=== PATIENT | female | born 1965 | race Caucasian/White ===

== ENCOUNTER 2020-02-13 16:00 | Outpatient (RCR) | payer OTHER, SELFPAY ==
[2019-12-30 14:14] VITALS: BP 126/78; PULSE 71
--- NOTE | 2020-03-06 13:55 | MHC.PT.DC ---
[facility] [place] Office [place] Office [place] Office [address] Shilpi Bond [address] [phone] F: [phone] F: [phone] F: [phone] F: [phone] Physical Therapy Discharge Report Diagnosis: Vertigo Date of Surgery: Date of Evaluation: 12/30/19 Date of Discharge: 02/14/20 Treatments to Date: 8 Cancellations to Date: 0 No Shows to Date: 0 Discharge Status: Achieved Goals Improved Function Independent with HEP Discharge Summary: 02/13/20- Pt arrived with no symptoms of vertigo. She stated that she had mild dizziness yesterday when she stood up from a bent over position. She however does not have any dizziness with rolling and sit <> supine. She was assessed in B reyna pike and B roll test. She was negative for nystagmus and vertigo. No more therapy indicated. She was advised to return to therapy in case of return of symptoms. Pt d/c. Electronically signed by: Nkechi Dias DPT Please sign and return to therapist. Thank you for your referral.
== END 2020-03-06 14:58 | disposition other institution (70) ==
LOC: HO.PT 16:00
PROVIDERS: PCP Internal Medicine; Visit Provider Otolaryngology
DX: H81.10 Benign paroxysmal vertigo, unspecified ear (principal)
CPT/HCPCS: 95992; 97140; 97162; 97530

== ENCOUNTER 2020-04-30 16:23 | Outpatient (REF) | payer OTHER, SELFPAY ==
--- NOTE | ~2020-04-30 | XR_ITS ---
EXAMINATION: XR FOOT, LEFT CLINICAL INFORMATION: Left foot pain COMPARISON: 02/19/2006 TECHNIQUE: AP, lateral, and oblique views of the left foot. FINDINGS: There is a nondisplaced intra-articular fracture at the medial base of the first digit proximal phalanx. Questionable nondisplaced fracture at the lateral base of the first digit distal phalanx. Joint spaces are maintained. The soft tissues appear unremarkable. XR/XR foot LT min 3V IMPRESSION: Nondisplaced intra-articular fracture of the medial base of the first digit proximal phalanx. Questionable nondisplaced fracture at the lateral base of the first digit distal phalanx.
--- NOTE | ~2020-04-30 | XR_ITS ---
EXAMINATION: XR KNEE, LEFT CLINICAL INFORMATION: Left knee pain COMPARISON: None TECHNIQUE: Four views of the left knee. FINDINGS: There is no fracture or subluxation. Compartmental joint spaces are maintained. No joint effusion. The soft tissues are unremarkable. XR/XR knee LT 4V IMPRESSION: Normal left knee.
== END 2020-04-30 16:24 | disposition home or self-care (01) ==
LOC: HO.HMGCX 16:23
PROVIDERS: PCP Internal Medicine; Visit Provider Nurse Practitioner Family
DX: M25.562 Pain in left knee (principal); M79.672 Pain in left foot; W19.XXXA Unspecified fall, initial encounter
CPT/HCPCS: 73564; 73630

== ENCOUNTER 2020-09-19 11:57 | Outpatient (REF) | payer OTHER, SELFPAY ==
[2020-09-19 12:16] LABS: MANUAL DIFF FLAG NO
[2020-09-19 12:22] LABS: Basophils Percent Auto 0.4 % (0-2); Eosinophils Percent Auto 0.6 % (0-4); Hematocrit 40.8 % (37-47); Hemoglobin 13.8 g/dl (12.0-16.0); Lymphocytes Absolute Auto 0.9 X10*3/uL (1.2-4.9); Lymphocytes Percent Auto 18.6 % (20-40); Mean Corpuscular HGB Conc 33.8 g/dl (31.0-35.0); Mean Corpuscular Hemoglobin 34.4 pg (27.0-33.0); Mean Corpuscular Volume 101.7 fL (80-98); Mean Platelet Volume 9.4 fL (9.4-12.3); Monocytes Absolute Auto 0.6 X10*3/uL (0.1-1.2); Monocytes Percent Auto 12.7 % (2-11); Neutrophils Absolute Auto 3.3 X10*3/uL (2.0-8.3); Neutrophils Percent Auto 67.7 % (45-73); Platelet Count 245 X10*3/uL (160-400); Red Blood Count 4.01 X10*6/uL (4.20-5.50); Red Cell Distribution Width 12.6 % (11.0-16.0); White Blood Count 4.9 X10*3/uL (4.8-10.8)
[2020-09-19 13:15] LABS: Alanine Aminotransferase 38 U/L (0-31); Albumin Level 4.3 g/dL (3.5-5.0); Alkaline Phosphatase 73 U/L (39-117); Anion Gap 13 (12-20); Aspartate Amino Transferase 44 U/L (5-31); Blood Urea Nitrogen 12 mg/dL (9-16); Calcium 9.5 mg/dL (8.4-10.2); Carbon Dioxide 29 mmol/L (22-29); Chloride 103 mmol/L (96-108); Cholesterol 247 mg/dL; Estimated Glomerular Filt Rate > 60; Glucose Fasting 76 mg/dL (60-99); HDL Cholesterol 119 mg/dL; LDL Cholesterol Calculated 113 mg/dl; Potassium 4.7 mmol/L (3.3-5.1); Sodium 140 mmol/L (135-145); Total Protein 6.7 g/dL (6.5-8.0); Triglycerides 77 mg/dL
== END 2020-09-19 11:58 | disposition home or self-care (01) ==
LOC: HO.HSHHMC 11:57
PROVIDERS: Visit Provider Internal Medicine
DX: I10 Essential (primary) hypertension (principal); E78.5 Hyperlipidemia, unspecified; R42 Dizziness and giddiness
CPT/HCPCS: 36415; 80053; 80061; 85025

== ENCOUNTER 2021-05-01 15:30 | Outpatient (RCR) | payer OTHER, SELFPAY ==
[2021-02-05 15:18] VITALS: BP 147/92; PULSE 78
== END 2021-05-23 13:16 | disposition home or self-care (01) ==
LOC: HO.PT 15:30
PROVIDERS: Visit Provider Otolaryngology
DX: H81.10 Benign paroxysmal vertigo, unspecified ear (principal)
CPT/HCPCS: 95992; 97112; 97161

== ENCOUNTER 2021-05-29 15:31 | Outpatient (REF) | payer OTHER, SELFPAY ==
--- NOTE | ~2021-05-29 | MM_ITS ---
EXAMINATION: MM SCREENING DIGITAL BREAST TOMOSYNTHESIS, BILATERAL CLINICAL INFORMATION: Screening. Asymptomatic. Family history breast cancer, mother. The lifetime risk of breast cancer based on the Tyrer-Cuzick Model is 10%. COMPARISON: Mammography: 11/19/2019, 11/13/2018, 06/09/2017, 04/05/2016, 01/27/2015 TECHNIQUE: Digital breast tomosynthesis is performed in both the craniocaudal and mediolateral oblique views along with computer-aided detection (CAD). Synthesized 2D images are generated from the tomosynthesis. FINDINGS: There are scattered areas of fibroglandular density (ACR BI-RADS breast composition Category b). Left breast is unremarkable. There is no developing density or interval mass or architectural abnormality. Neither breast shows abnormal calcifications. The bilateral axilla and skin contours are unremarkable. Right CC view has subtle architectural changes 7 cm from nipple medial to midline. There is fatty attenuation in the center of this area. No definite correlate on MLO view. Patient will be recalled for additional imaging. MM/MM tomosynthesis screening BI IMPRESSION: Right: -Subtle architectural changes mid inner right breast on CC view, new from prior studies. Left: -No mammographic evidence of malignancy. ASSESSMENT: BI-RADS 0: Incomplete - Need Additional Imaging Evaluation RECOMMENDATION: 1. Additional views of the right breast (spot CC, rolled CC x2, standard LM). 2. Targeted ultrasound if warranted after review of the additional views. 3. Radiology department staff will contact the patient for additional imaging. This patient's information was entered into a reminder system with a target due date for their next mammogram.
== END 2021-05-29 15:32 | disposition home or self-care (01) ==
LOC: HO.MAMMO 15:31
PROVIDERS: Visit Provider Internal Medicine
DX: Z12.31 Encounter for screening mammogram for malignant neoplasm of breast (principal)
CPT/HCPCS: 77063; 77067

== ENCOUNTER 2021-06-03 08:24 | Outpatient (REF) | payer OTHER, SELFPAY ==
--- NOTE | ~2021-06-03 | MM_ITS ---
EXAMINATION: MM DIAGNOSTIC DIGITAL BREAST TOMOSYNTHESIS, RIGHT CLINICAL INFORMATION: Recall from screening for question of architectural changes mid central inner right breast on CC view. COMPARISON: Mammography: 05/29/2021, 11/19/2019, 11/13/2018, 05/30/2017 TECHNIQUE: Digital breast tomosynthesis is performed. 2D images are generated from the tomosynthesis. The following views are obtained: Spot CC, rolled CC x2, LM x2. FINDINGS: There are scattered areas of fibroglandular density (ACR BI-RADS breast composition Category b). The additional views show no architectural abnormality. There is no interval mass or developing density. No significant changes. Parenchymal pattern unremarkable. Results are discussed with the patient at time of visit. MM/MM tomosynthesis added views R IMPRESSION: Additional views show no architectural abnormality or significant changes from prior studies. ASSESSMENT: BI-RADS 1: Negative RECOMMENDATION: Routine annual mammography screening. This patient's information was entered into a reminder system with a target due date for their next mammogram.
== END 2021-06-03 08:25 | disposition home or self-care (01) ==
LOC: HO.MAMMO 08:24
PROVIDERS: Visit Provider Internal Medicine
DX: N64.89 Other specified disorders of breast (principal)
CPT/HCPCS: 77061; 77065

== ENCOUNTER 2021-12-13 05:57 | Outpatient (REF) | payer OTHER, SELFPAY ==
[2021-12-13 08:08] LABS: Hematocrit 45.2 % (37.0-47.0); Hemoglobin 14.8 g/dl (12.0-16.0); Mean Corpuscular HGB Conc 32.7 g/dl (31.0-35.0); Mean Corpuscular Hemoglobin 33.8 pg (27.0-33.0); Mean Corpuscular Volume 103.2 fL (80.0-98.0); Mean Platelet Volume 10.7 fL (9.4-12.3); Platelet Count 220 X10*3/uL (160-400); Red Blood Count 4.38 X10*6/uL (4.20-5.50); Red Cell Distribution Width 12.3 % (11.0-16.0); White Blood Count 4.5 X10*3/uL (4.8-10.8)
[2021-12-13 08:27] LABS: Alanine Aminotransferase 23 U/L (0-31); Albumin Level 4.7 g/dL (3.5-5.0); Alkaline Phosphatase 82 U/L (39-117); Anion Gap 17 (12-20); Aspartate Amino Transferase 30 U/L (5-31); Bilirubin Total 0.8 mg/dL (0.0-1.0); Blood Urea Nitrogen 14 mg/dL (9-16); Calcium 9.9 mg/dL (8.4-10.2); Carbon Dioxide 30 mmol/L (22-29); Chloride 101 mmol/L (96-108); Cholesterol 288 mg/dL; Estimated Glomerular Filt Rate > 60; Glucose Fasting 81 mg/dL (60-99); HDL Cholesterol 120 mg/dL; LDL Cholesterol Calculated 151 mg/dl; Potassium 4.7 mmol/L (3.3-5.1); Sodium 143 mmol/L (135-145); Total Protein 7.5 g/dL (6.5-8.0); Triglycerides 87 mg/dL
[2021-12-13 08:29] LABS: Alanine Aminotransferase 22 U/L (0-31); Albumin Level 4.7 g/dL (3.5-5.0); Alkaline Phosphatase 82 U/L (39-117); Anion Gap 17 (12-20); Aspartate Amino Transferase 27 U/L (5-31); Bilirubin Total 0.8 mg/dL (0.0-1.0); Blood Urea Nitrogen 15 mg/dL (9-16); Calcium 10.1 mg/dL (8.4-10.2); Carbon Dioxide 31 mmol/L (22-29); Chloride 101 mmol/L (96-108); Cholesterol 286 mg/dL; Estimated Glomerular Filt Rate > 60; Glucose Fasting 82 mg/dL (60-99); HDL Cholesterol 119 mg/dL; LDL Cholesterol Calculated 150 mg/dl; Potassium 4.6 mmol/L (3.3-5.1); Sodium 144 mmol/L (135-145); Total Protein 7.4 g/dL (6.5-8.0); Triglycerides 86 mg/dL
[2021-12-13 08:47] LABS: TSH reflex Free T4 3.52 uIU/mL (0.32-4.0); Vitamin D 25-OH Total 38.7 ng/mL (>30)
[2021-12-13 09:16] LABS: Folate 4.8 ng/mL (> or = 4.0); Vitamin B12 216 pg/mL (200-900)
[2021-12-19 12:47] LABS: Vitamin D 25-OH, D2 <4 ng/mL; Vitamin D 25-OH, D3 41 ng/mL; Vitamin D 25-OH, Total 41 ng/mL (30-100)
== END 2021-12-13 05:58 | disposition home or self-care (01) ==
LOC: HO.HSHHMC 05:57
PROVIDERS: Absent Provider Nurse Practitioner Family; Visit Provider Internal Medicine
DX: E78.5 Hyperlipidemia, unspecified (principal); R42 Dizziness and giddiness; I10 Essential (primary) hypertension; E55.9 Vitamin D deficiency, unspecified
CPT/HCPCS: 36415; 80053; 80061; 82306; 82607; 82746; 84443; 85027

== ENCOUNTER 2022-05-20 07:15 | Outpatient (REF) | payer OTHER, SELFPAY ==
[2022-05-20 11:02] LABS: Alanine Aminotransferase 58 U/L (0-31); Albumin Level 4.3 g/dL (3.5-5.0); Alkaline Phosphatase 79 U/L (39-117); Anion Gap 16 (12-20); Aspartate Amino Transferase 61 U/L (5-31); Bilirubin Total 1.1 mg/dL (0.0-1.0); Blood Urea Nitrogen 14 mg/dL (9-16); Calcium 9.4 mg/dL (8.4-10.2); Carbon Dioxide 31 mmol/L (22-29); Chloride 102 mmol/L (96-108); Cholesterol 271 mg/dL; Estimated Glomerular Filt Rate > 60; Glucose Fasting 84 mg/dL (60-99); HDL Cholesterol 116 mg/dL; LDL Cholesterol Calculated 141 mg/dl; Potassium 4.8 mmol/L (3.3-5.1); Sodium 144 mmol/L (135-145); Total Protein 6.7 g/dL (6.5-8.0); Triglycerides 74 mg/dL
[2022-05-20 11:18] LABS: Vitamin D 25-OH Total 44.4 ng/mL (>30)
[2022-05-20 11:32] LABS: Folate 8.5 ng/mL (> or = 4.0); Vitamin B12 1018 pg/mL (200-900)
== END 2022-05-20 07:16 | disposition home or self-care (01) ==
LOC: HO.HSHHMC 07:15
PROVIDERS: Nurse Practitioner Family; Visit Provider Internal Medicine
DX: I10 Essential (primary) hypertension (principal); E78.5 Hyperlipidemia, unspecified; E53.8 Deficiency of other specified B group vitamins; E55.9 Vitamin D deficiency, unspecified
CPT/HCPCS: 36415; 80053; 80061; 82306; 82607; 82746

== ENCOUNTER 2022-06-20 15:00 | Outpatient (RCR) | payer OTHER, SELFPAY ==
[2022-04-11 14:51] VITALS: BP 132/84
--- NOTE | 2022-08-29 11:55 | MHC.PT.DC ---
[facility] [place] Office [place] Office [place] Office [address] Shilpi Bond [address] [phone] F: [phone] F: [phone] F: [phone] F: [phone] Physical Therapy Discharge Report Diagnosis: Vertigo Date of Surgery: NA Date of Evaluation: 04/11/22 Date of Discharge: 08/29/22 Treatments to Date: 9 Cancellations to Date: 2 No Shows to Date: Discharge Status: Independent with HEP Discharge Summary: Millie completed 9 PT visits. She has returned back positive for L PC BPPV every single session. I therefore sent home with HEP for self management. She has not returned to PT in over 2 months. She is therefore being d/c from PT. Electronically signed by: Nkechi Dias, PT DPT Please sign and return to therapist. Thank you for your referral.
== END 2022-08-29 11:55 | disposition home or self-care (01) ==
LOC: HO.PT 15:00
PROVIDERS: PCP Internal Medicine; Visit Provider Otolaryngology
DX: R42 Dizziness and giddiness (principal)
CPT/HCPCS: 95992; 97112; 97161

== ENCOUNTER 2022-07-05 10:43 | Outpatient (REF) | payer OTHER, SELFPAY ==
--- NOTE | ~2022-07-05 | MM_ITS ---
EXAMINATION: MM SCREENING DIGITAL BREAST TOMOSYNTHESIS, BILATERAL CLINICAL INFORMATION: Screening. Asymptomatic. The lifetime risk of breast cancer based on the Tyrer-Cuzick Model is 10%. COMPARISON: Mammography: 06/03/2021, 05/29/2021, 11/19/2019 TECHNIQUE: Digital breast tomosynthesis is performed in both the craniocaudal and mediolateral oblique views along with computer-aided detection (CAD). Synthesized 2D images are generated from the tomosynthesis. FINDINGS: There are scattered areas of fibroglandular density (ACR BI-RADS breast composition Category b). There are no significant masses, abnormal calcifications, or other abnormalities. Parenchymal pattern is similar to prior studies. There is no developing density or architectural abnormality. The axilla and skin contours are unremarkable. No significant changes. MM/MM tomosynthesis screening BI IMPRESSION: No mammographic evidence of malignancy. ASSESSMENT: BI-RADS 1: Negative RECOMMENDATION: Routine annual mammography screening. This patient's information was entered into a reminder system with a target due date for their next mammogram.
== END 2022-07-05 10:44 | disposition home or self-care (01) ==
LOC: HO.MAMMO 10:43
PROVIDERS: Visit Provider Internal Medicine
DX: Z12.31 Encounter for screening mammogram for malignant neoplasm of breast (principal)
CPT/HCPCS: 77063; 77067

== ENCOUNTER 2023-05-13 17:22 | Outpatient (AMB) | payer OTHER, SELFPAY ==
[2023-05-13 17:29] VITALS: BP 136/82; BMI 24.6
--- NOTE | 2023-05-13 17:29 | A.OFFPC_ITS ---
Vital Signs 05/13/23 17:29 Height 5 ft 3 in Weight 139 lb BMI 24.6 BP 136/82 Blood Pressure Location Lt brachial Position Sitting Intake Visit Reasons: Annual PE Intake Note: Patient here for a physical exam Healthcare Risk Control Consultant Required: No Accompanied by: Self / Same As Patient Allergies No Known Allergies Allergy (Unknown, Verified 05/13/23 17:37) Medication List - Last Reconciled 05/13/23 by Christina Queen MD aspirin (Adult Low Dose Aspirin) 81 mg PO DAILY atorvastatin 20 mg PO BEDTIME 90 days cholecalciferol (vitamin D3) 25 mcg PO DAILY 90 days escitalopram oxalate 20 mg PO BEDTIME 90 days lisinopril 20 mg PO DAILY 90 days lorazepam 0.5 mg PO BEDTIME PRN 30 days omeprazole 40 mg PO DAILY 90 days Tobacco use date assessed: 05/13/23 Dental Screening Dental Screen Date: 05/13/23 Did you have a dental visit in the last 12 months?: Yes Did you have a dental problem in the last 6 months where you did not have access to dental care?: No Was dental information given to patient?: Patient has dentist HPI HPI Comments History of Present Illness Details This is a 58-year-old female with non-Hodgkin's lymphoma in remission since 1984 that comes for her physical exam. She also has mild major depression that has worsened since January 2023 after that of her brother. Last mammogram was 2022. Last colonoscopy was 2015. No chest pain or shortness of breath. Occasional diarrhea when anxious. FORMERLY [facility], [facility]–1983 Medical History (Updated 05/13/23 @ 17:58 by Christina Queen MD) GERD (gastroesophageal reflux disease) Left sided sciatica Dyslipidemia Hypovitaminosis D Anxiety Vertigo Essential hypertension Surgical History History of colonoscopy History of surgery History of lymph node biopsy History of section H/O LEEP Family History (Updated 05/13/23 @ 17:43 by Christina Queen MD) Father CHF (congestive heart failure) TIA (transient ischemic attack) Pacemaker Mother Breast cancer AAA (abdominal aortic aneurysm) Stroke Brother Esophageal cancer Sister Hypertension Maternal Uncle AAA (abdominal aortic aneurysm) Social History Housing: House Alcohol intake: current Alcohol intake frequency: a few times a week Alcohol type: wine Patient Tobacco Use Status: Never used Tobacco e-Cigarette/Vaping Use: Never Used Second Hand Smoke Exposure: No service: No Current occupational status: employed Current occupational exposures/hazards: No Cognitive needs: No Hearing needs: No Vision needs: Yes Questionnaire PHQ-9 Over the last 2 weeks, how often have you been bothered by any of the following problems? 1. Little interest or pleasure in doing things: not at all 2. Feeling down, depressed, or hopeless: several days 3. Trouble falling or staying asleep, or sleeping too much: several days 4. Feeling tired or having little energy: several days 5. Poor appetite or overeating: not at all 6. Feeling bad about yourself - or that you are a failure or have let yourself or your family down: not at all 7. Trouble concentrating on things, such as reading the newspaper or watching television: not at all 8. Moving or speaking so slowly that other people could have noticed. Or the opposite - being so fidgety or restless that you have been moving around a lot more than usual: several days 9. Thoughts that you would be better off or of hurting yourself in some way: not at all Total score: 4 Depression Screening Interpretation: Positive Depression Screening Follow-up: Existing condition and In treatment Depression Screening Done: Yes 40696 - PHQ-9 Billing: Yes Source: Developed by Drs. Hernan Jones, Michelle Ambrose, Julio Euceda and colleagues, with an educational fish from [employer]. Thrive Questionnaire Date Thrive assessed: 05/13/23 I am a: Patient What is your living situation today?: I have a steady place to live Within the past 12 months, did the food you bought not last and you didn't have the money to get more?: Never true Within the past 12 months, did you worry whether your food would run out before you got money to buy more?: Never true Do you have trouble paying for medicines?: No Do you have trouble getting transportation to medical appointments?: No Do you have trouble paying your heating and electricity bill?: No Do you have trouble taking care of your child, family member or friend?: No Do you have trouble with day-to-day activities such as bathing, preparing meals, shopping, managing finances, etc.?: No Are you currently unemployed and looking for a job?: No Are you interested in more education?: No Please select the resources that you would like help with: None Currently or been in a relationship where the following occur: no concerns reported THRIVE Score: 0 AUDIT C Alcohol Use Questionnaire (AUDIT-C) 1. How often do you have a drink containing alcohol?: 2-3 times a week 2. How many drinks containing alcohol do you have on a typical day when you are drinking?: 1 or 2 3. How often do you have six or more drinks on one occasion?: Never Total Score: 3 Score Reviewed/Action Taken: No NAKUL-7 AMB Questionnaire NAKUL-7 Date NAKUL - 7 assessed: 05/13/23 Feeling nervous, anxious, or on edge: 1 = Several days Not being able to stop or control worryin = Not at all Worrying too much about different things: 1 = Several days Trouble relaxin = Several days Being so restless that it is hard to sit still: 0 = Not at all Becoming easily annoyed or irritable: 0 = Not at all Feeling afraid as if something awful might happen: 0 = Not at all Total NAKUL-7 score (0-4 normal; 5-9 mild; 10-14 moderate; 15-21 severe): 3 Source: Developed by Drs. Hernan Jones, Michelle Ambrose, Julio Euceda and colleagues, with an educational fish from [employer]. NAKUL-7 Assessment Billing NAKUL-7 Assessment Tool: NAKUL-7 Assessment 38044 Review of Systems Const All systems reviewed & are unremarkable except as noted in HPI and below Eyes Reports no additional complaints, Denies change in vision and Denies other visual disturbances Card Denies chest pain at rest, Denies chest pain with activity, Denies edema, Denies irregular heart rhythm, Denies claudication, Denies dyspnea, Denies dyspnea on exertion, Denies orthopnea, Denies paroxysmal nocturnal dyspnea and Denies slow heart rate Resp Denies cough, Denies dyspnea and Denies dyspnea on exertion Physical exam (Primary Care) Vital Signs: Last Vital Signs BP 136/82 05/13/23 17:29 BMI result Body Mass Index 24.6 Tobacco/Smoking Status: Tobacco use Status Tobacco use date assessed 05/13/23 05/13/23 17:34 Patient Tobacco Use Status Never used Tobacco 05/13/23 17:34 e-Cigarette/Vaping Use Never Used 05/13/23 17:34 PHQ-9: PHQ-9 Score PHQ-9: Total score 4 05/13/23 17:34 Depression Screening Interpretation: Positive Depression Screening Follow-up: Existing condition and In treatment Thrive Assessment: Date of Thrive Assessment Date Thrive assessed 05/13/23 05/13/23 17:34 Currently or been in a relationship where the following occur: no concerns reported Const Orientation/consciousness: patient oriented x3 HENMT Head: Yes normal to inspection, Yes normocephalic and Yes atraumatic Ears: external ears normal Eyes General: appearance normal, both eyes and all related structures Eyelids: Yes eyelids normal Conjunctivae: conjunctivae normal Neck Neck: Yes normal visual inspection and Yes supple Resp Effort & Inspection: normal respiratory effort Auscultation: clear to auscultation bilaterally Cardio Jugular venous distension: no JVD Rate: regular rate Rhythm: regular rhythm Heart sounds: S1 normal heart sound present and S2 normal heart sound present GI Inspection: Yes normal to inspection Palpation (GI): Soft to palpation and nontender Auscultation: normal bowel sounds Skin General skin exam: no rashes or lesions noted Neuro General: patient oriented x3 and no focal motor deficits Extrem General: Yes full ROM Psych Appearance: grossly normal Assessment and Plan Assessment & Plan (1) Adult general medical exam: Code(s): Z00.00 - Encounter for general adult medical examination without abnormal findings Plan: Repeat in a year. (2) Non-Hodgkin lymphoma in remission: Code(s): C85.90 - Non-Hodgkin lymphoma, unspecified, unspecified site Plan: CBC ordered. No lymphadenopathy. (3) Mild major depression: Code(s): F32.0 - Major depressive disorder, single episode, mild Plan: Continue escitalopram. Orders: Orders Vitamin D 25-OH Total Today E55.9 - Vitamin D deficiency, unspecified Vitamin B12 and Folate Today E53.8 - Deficiency of other specified B group vitamins Comprehensive [place]. Panel Fast Today Z00.00 - Encounter for general adult medical examination without abnormal findings Lipid Panel Today E78.5 - Hyperlipidemia, unspecified Complete Blood Count Auto Diff Today C85.90 - Non-Hodgkin lymphoma, unspecified, unspecified site Coding Level of Care Code Est Pt Prev Care 40-64y(10811) Diagnoses Adult general medical exam Z00.00 Non-Hodgkin lymphoma in remission C85.90 Mild major depression F32.0 Additional Codes NAKUL-7 Assessment Billing - NAKUL-7 Assessment Tool: NAKUL-7 Assessment 41080 ([id number]) Time Spent (min) 35
== END 2023-05-13 17:56 | disposition home or self-care (01) ==
PROVIDERS: PCP Internal Medicine; Visit Provider Internal Medicine
DX: Z00.00 Encounter for general adult medical examination without abnormal findings (principal); C85.90 Non-Hodgkin lymphoma, unspecified, unspecified site; F32.0 Major depressive disorder, single episode, mild
CPT/HCPCS: 99396

== ENCOUNTER 2023-07-06 14:53 | Outpatient (REF) | payer OTHER, SELFPAY ==
--- NOTE | ~2023-07-06 | MM_ITS ---
EXAMINATION: MM DIAGNOSTIC DIGITAL BREAST TOMOSYNTHESIS, BILATERAL US BREAST LIMITED, LEFT MAMMOGRAPHY: CLINICAL INFORMATION: Evaluation of a palpable left breast lump 3 weeks duration. Patient reports a fall 3 months prior with bruising in this area. COMPARISON: Mammography: This study is compared with prior mammography dating back to 2019. TECHNIQUE: Digital breast tomosynthesis is performed in both the craniocaudal and mediolateral oblique views along with computer-aided detection (CAD). Synthesized 2D images are generated from the tomosynthesis. A full lateral view of the left breast and CC and MLO spot compression of the medial aspect of the left breast in the area of patient concern at 9:00 location 9:00 performed. FINDINGS: There are scattered areas of fibroglandular density (ACR BI-RADS breast composition Category b). There are no significant masses, abnormal calcifications, or other abnormalities. There are no mammographic signs of malignancy in either breast. There is no mammographic abnormality in the area of patient concern in the 9:00 region and in the anterior depth. ULTRASOUND: CLINICAL INFORMATION: Evaluation of a palpable left breast lump 3 weeks duration. Patient reports a fall 3 months prior with bruising in this area. COMPARISON: There are no recent previous breast ultrasounds for comparison. TECHNIQUE: Targeted sonographic evaluation was performed using a high frequency linear transducer. Selected archived documentation. FINDINGS: LEFT BREAST: Sonography of the area of patient concern, left breast 9:00 4 cm from the nipple as performed. In this location, there is an oval, well-circumscribed, heterogeneous, predominantly echogenic mass with faint decreased echogenicity. This represents a resolving hematoma. The structure measures 16 mm x 10 mm x 7 mm. This finding warrants short interval three-month follow-up to demonstrate lack of significant change given the absence of prior recent ultrasound comparison. This is not a worrisome entity however. MM/MM tomosynthesis diagnostic BI IMPRESSION: 16 mm predominantly echogenic palpable left breast mass in the 9:00 region 4 cm from the nipple likely represents a resolving hematoma. In the absence of recent prior sonography for comparison, it is appropriate for the patient to have short interval three-month follow-up sonography of this finding. No mammographic signs of malignancy in either breast. OVERALL ASSESSMENT: Mammography: BI-RADS 3 - Probably benign finding(s) - 6 month follow-up suggested Ultrasound: BI-RADS 3 - Probably benign finding(s) - 6 month follow-up suggested DUE TO A SOFTWARE ISSUE, THE ULTRASOUND BI-RADS CODE SUGGESTS A SIX-MONTH FOLLOW-UP. THE SONOGRAPHIC FOLLOW-UP SHOULD BE 3 MONTHS. RECOMMENDATION: 1-3 Months F/U Results were provided to the patient at time of visit by the technologist. This patient's information was entered into a reminder system with a target due date for their next mammogram.
== END 2023-07-06 14:54 | disposition home or self-care (01) ==
LOC: HO.MAMMO 14:53
PROVIDERS: PCP Internal Medicine; Visit Provider Obstetrics & Gynecology
DX: N63.25 Unspecified lump in the left breast, overlapping quadrants (principal)
CPT/HCPCS: 76642; 77062; 77066

== ENCOUNTER → 2023-07-06 15:00 | Outpatient (BNV) | payer OTHER, SELFPAY | PROVIDERS: PCP Internal Medicine; Visit Provider Radiology Diagnostic Radiology | DX: N63.20 Unspecified lump in the left breast, unspecified quadrant (principal) | CPT/HCPCS: 76642; 77062; 77066 ==

== ENCOUNTER 2023-08-13 15:00 | Outpatient (RCR) | payer OTHER, SELFPAY ==
[2023-05-21 10:01] VITALS: BP 141/84; PULSE 76
== END 2023-09-17 15:20 | disposition home or self-care (01) ==
LOC: HO.PT 15:00
PROVIDERS: PCP Internal Medicine; Visit Provider Otolaryngology
DX: H81.10 Benign paroxysmal vertigo, unspecified ear (principal)
CPT/HCPCS: 95992; 97112; 97161

== ENCOUNTER 2023-09-07 15:22 | Outpatient (REF) | payer OTHER, SELFPAY ==
--- NOTE | ~2023-09-07 | US_ITS ---
EXAMINATION: US DIAGNOSTIC ULTRASOUND BREAST, LEFT CLINICAL INFORMATION: Follow-up 1.6 cm echogenic palpable abnormality left breast 9:00 axis, 4 cm from the nipple, most likely related to trauma from fall with bruising. Findings are most likely represent evolving fat contusion and are probably benign. COMPARISON: 07/06/2023 TECHNIQUE: Ultrasound of the breast is performed with real-time dalton scale imaging and color Doppler. Attention to the left breast was given to the 9:00 axis, 4 cm from the nipple. FINDINGS: Redemonstration of an oval echogenic subcutaneous mass at the 9:00 axis, left breast, 4 cm from the nipple, currently measuring 1.4 x 1.1 x 0.5 cm (smaller, previously measuring 1.6 x 1.2 x 0.7 cm when measured similarly). This finding is consistent with an evolving fat contusion or possibly evolving fat necrosis. It remains probably benign. Results are provided to the patient at time of visit by the technologist. US/US breast LT limited mamm only IMPRESSION: Probably benign slightly smaller oval echogenic mass in the left breast 9:00 axis, 4 cm from the nipple. This is likely related to patient's prior trauma as described above. Recommend 9 month interval follow-up targeted left breast ultrasound when the patient is due for bilateral screening to ensure stability. If stable or smaller at that time, no further follow-up deemed necessary. ASSESSMENT: BI-RADS 3 - Probably benign finding(s) - 6 month follow-up suggested RECOMMENDATION: 6 Month F/U DUE TO A PERSISTENT SOFTWARE ISSUE, THE ULTRASOUND BI-RADS CODE SUGGESTS A SIX-MONTH FOLLOW-UP. THE SONOGRAPHIC FOLLOW-UP SHOULD BE IN 9 MONTHS. This patient's information was entered into a reminder system with a target due date for their next mammogram.
== END 2023-09-07 15:23 | disposition home or self-care (01) ==
LOC: HO.MAMMO 15:22
PROVIDERS: PCP Internal Medicine; Visit Provider Internal Medicine
DX: R92.2 Inconclusive mammogram (principal)
CPT/HCPCS: 76642

== ENCOUNTER → 2023-09-07 15:30 | Outpatient (BNV) | payer OTHER, SELFPAY | PROVIDERS: PCP Internal Medicine; Visit Provider Radiology Diagnostic Radiology | DX: R92.8 Other abnormal and inconclusive findings on diagnostic imaging of breast (principal) | CPT/HCPCS: 76642 ==

== ENCOUNTER 2023-11-02 17:13 | Outpatient (AMB) | payer OTHER, SELFPAY ==
--- NOTE | 2023-11-02 17:14 | MHC.PC.OV ---
Intake Visit Reasons: anxiety, Intake Note: Telehealth follow up Anxiety Case Filler Required: No Accompanied by: Self / Same As Patient Allergies No Known Allergies Allergy (Unknown, Verified 11/02/23 17:31) Medication List - Last Reconciled 11/02/23 by Christina Queen MD aspirin (Adult Low Dose Aspirin) 81 mg PO DAILY atorvastatin 20 mg PO BEDTIME 90 days cholecalciferol (vitamin D3) 25 mcg PO DAILY 90 days escitalopram oxalate 20 mg PO BEDTIME 90 days lisinopril 20 mg PO DAILY 90 days lorazepam 0.5 mg PO BEDTIME PRN 30 days omeprazole 40 mg PO DAILY 90 days Tobacco use date assessed: 05/13/23 Dental Screening Dental Screen Date: 11/02/23 Did you have a dental visit in the last 12 months?: Yes Did you have a dental problem in the last 6 months where you did not have access to dental care?: No Was dental information given to patient?: Patient has dentist HPI HPI Comments History of Present Illness Details This is a 58-year-old female with hypertension, GERD, mild major depression and anxiety that has tele health visit by video for follow-up on her conditions. On losartan for her hypertension. GERD stable with PPIs. Still has depression with anxiety on escitalopram 20 mg and she does not think it is working for her. She said she use Prozac in the past with great success. I will decrease escitalopram to 10 mg for a week and start her on Prozac. She would also like to see a prescriber for her depression with anxiety and I will refer her to outpatient psychiatry service at [facility] [place] evaluation and treatment. No chest pain or shortness on breath. [facility] Medical History (Updated 05/13/23 @ 17:58 by Christina Queen MD) GERD (gastroesophageal reflux disease) Left sided sciatica Dyslipidemia Hypovitaminosis D Anxiety Vertigo Essential hypertension Surgical History History of colonoscopy History of surgery History of lymph node biopsy History of section H/O LEEP Family History Father CHF (congestive heart failure) TIA (transient ischemic attack) Pacemaker Mother Breast cancer AAA (abdominal aortic aneurysm) Stroke Brother Esophageal cancer Sister Hypertension Maternal Uncle AAA (abdominal aortic aneurysm) Social History (Updated 11/02/23 @ 17:34 by Christina Queen MD) Housing: House Alcohol intake: current Alcohol intake frequency: 0-2 drinks per day Alcohol type: wine Patient Tobacco Use Status: Never used Tobacco e-Cigarette/Vaping Use: Never Used Second Hand Smoke Exposure: No service: No Current occupational status: employed Current occupational exposures/hazards: No Cognitive needs: No Hearing needs: No Vision needs: Yes Questionnaire Thrive Questionnaire Date Thrive assessed: 05/13/23 NAKUL-7 AMB Questionnaire NAKUL-7 Date NAKUL - 7 assessed: 05/13/23 Source: Developed by Drs. Hernan Jones, Michelle Ambrose, Julio Euceda and colleagues, with an educational fish from [employer]. Review of Systems Const All systems reviewed & are unremarkable except as noted in HPI and below ENT Reports vertigo Card Denies chest pain at rest, Denies chest pain with activity, Denies edema, Denies irregular heart rhythm, Denies claudication, Denies dyspnea, Denies dyspnea on exertion, Denies orthopnea, Denies paroxysmal nocturnal dyspnea and Denies slow heart rate Resp Denies cough, Denies dyspnea and Denies dyspnea on exertion GI Denies abdominal pain, Denies change in bowel habits, Denies excessive flatus, Denies nausea and Denies vomiting Denies urinary incontinence, Denies urinary hesitancy and Denies urinary urgency Musc Denies atrophy, Denies deformity and Denies limited range of motion Neuro Reports vertigo Psych Reports abnormal sleep pattern, Reports anxiety and Reports depression Physical exam (Primary Care) Tobacco/Smoking Status: Tobacco use Status Tobacco use date assessed 05/13/23 11/02/23 17:17 Patient Tobacco Use Status Never used Tobacco 11/02/23 17:34 e-Cigarette/Vaping Use Never Used 11/02/23 17:34 Thrive Assessment: Date of Thrive Assessment Date Thrive assessed 05/13/23 11/02/23 17:17 HENMT Head: Yes normocephalic and Yes atraumatic General nose exam: Normal external nose present Mouth: lip normal Eyes General: appearance normal, both eyes and all related structures Telehealth Telehealth Telehealth Platform: Other (please specify) (Facetime/Video) Location of provider rendering services: practice address Location of patient: address on file Patient Identification confirmed using: Name, : Yes Telehealth method: video Patient verbally consented to treatment: Yes Patient verbally consented to billing insurance company: Yes Patient informed of any privacy concerns related to visit: Yes Minutes spent on Phone/Video with Pt.: 20 Assessment and Plan Assessment & Plan (1) Mild major depression: Code(s): F32.0 - Major depressive disorder, single episode, mild Plan: Decrease escitalopram for 10 mg for a week. Start fluoxetine. Referred to Psychiatry outpatient for evaluation. (2) GERD (gastroesophageal reflux disease): Code(s): K21.9 - Gastro-esophageal reflux disease without esophagitis Plan: Continue PPIs. (3) Anxiety: Code(s): F41.9 - Anxiety disorder, unspecified Plan: Continue benzodiazepines as needed. (4) Essential hypertension: Code(s): I10 - Essential (primary) hypertension Plan: Continue lisinopril. Blood pressure goal is equal or less than 130/80. Orders: Orders Vitamin D 25-OH Total Today E55.9 - Vitamin D deficiency, unspecified Comprehensive [place]. Panel Fast Today C85.90 - Non-Hodgkin lymphoma, unspecified, unspecified site Vitamin B12 and Folate Today E53.8 - Deficiency of other specified B group vitamins Lipid Panel Today E78.5 - Hyperlipidemia, unspecified Referrals Psychiatry Outpatient Consultation Service F32.0 - Major depressive disorder, single episode, mild, F41.9 - Anxiety disorder, unspecified Medications: New escitalopram oxalate 10 mg PO DAILY 7 tabs 0RF 7 days fluoxetine 10 mg PO DAILY 30 tabs 1RF 30 days Refilled lorazepam 0.5 mg PO BEDTIME PRN 30 tabs 0RF anxiety 30 days Discontinued escitalopram oxalate Discontinued Reason: Patient Completed Course 20 mg PO BEDTIME 90 days 90 tabs 1RF F41.9 - Anxiety disorder, unspecified Coding Level of Care Code Tele Est Pt Level 4 (88177) Complex EM visit Add On G2211 Diagnoses Mild major depression F32.0 GERD (gastroesophageal reflux disease) K21.9 Anxiety F41.9 Essential hypertension I10 Time Spent (min) 20
== END 2023-11-02 18:01 | disposition home or self-care (01) ==
LOC: HO.HMGH 17:14
PROVIDERS: PCP Internal Medicine; Visit Provider Internal Medicine
DX: F32.0 Major depressive disorder, single episode, mild (principal); K21.9 Gastro-esophageal reflux disease without esophagitis; F41.9 Anxiety disorder, unspecified; I10 Essential (primary) hypertension
CPT/HCPCS: 99214

== ENCOUNTER 2023-11-07 10:41 | Outpatient (REF) | payer OTHER, SELFPAY ==
[2023-11-07 12:26] LABS: Alanine Aminotransferase 42 U/L (0-31); Albumin Level 4.2 g/dL (3.5-5.0); Alkaline Phosphatase 72 U/L (39-117); Anion Gap 14 (12-20); Aspartate Amino Transferase 47 U/L (5-31); Bilirubin Total 0.9 mg/dL (0.0-1.0); Blood Urea Nitrogen 9 mg/dL (9-16); Calcium 9.8 mg/dL (8.4-10.2); Carbon Dioxide 30 mmol/L (22-29); Chloride 101 mmol/L (96-108); Cholesterol 259 mg/dL (<200); Estimated Glomerular Filt Rate > 60; Glucose Fasting 100 mg/dL (60-99); HDL Cholesterol 111 mg/dL (>40); LDL Cholesterol Calculated 135 mg/dL (<100); Potassium 5.4 mmol/L (3.3-5.1); Sodium 140 mmol/L (135-145); Triglycerides 69 mg/dL (<150)
[2023-11-07 12:40] LABS: Vitamin D 25-OH Total 51.1 ng/mL (>30)
[2023-11-07 12:53] LABS: Folate 5.1 ng/mL (> or = 4.0); Vitamin B12 323 pg/mL (200-900)
== END 2023-11-07 10:42 | disposition home or self-care (01) ==
LOC: HO.LAB 10:41
PROVIDERS: PCP Internal Medicine; Visit Provider Internal Medicine
DX: C85.90 Non-Hodgkin lymphoma, unspecified, unspecified site (principal); E55.9 Vitamin D deficiency, unspecified; E53.8 Deficiency of other specified B group vitamins; E78.5 Hyperlipidemia, unspecified
CPT/HCPCS: 36415; 80053; 80061; 82306; 82607; 82746

== ENCOUNTER 2024-01-08 15:01 | Outpatient (AMB) | payer OTHER, SELFPAY ==
--- NOTE | 2024-01-08 15:10 | MHC.OFFVISPS ---
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 pt was on lexapro 20 mg but it was not helping her anxiety. PCP tapered off lexapro and started prozac 10 mg daily . pt had taken prozac in past for anxiety with good effect. pt has hx of taking prozac after her daughter was born by emergency and then 6 months later pt was diagnoses with non- hodgkins lymphoma and went through surgery and chemotherapy. she describes herself as always being on the worried side but the first time she needed treatment was at age 20 after first child born and cancer dx. Pt did very well and eventually went off the prozac and remained in remission x 20 yrs. 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 She has also had a number of difficult losses with the sudden loss of her mother in 2002 and then the loss of her aunt, uncle, grandmother and sister in law all in a few years from [id number]. More recently she lost her bother in January 2023 after caring for him along with other family for many months due to esophageal cancer. She is one of 8 children and they are very close; she is and has 4 adult daughter (2 bio and 2 step) and 3 grandchildren. they are all very close. she has good coping skills and sees a therapist. PHQ9 = 2 and GAD7= 3 Past Psychiatric History: outpt treatment; no IPLOC Subjective Subjective Subjective Medication Compliance: Yes Side effects from medications: No Review of Systems Medical Review of Systems: unchanged Mental Status Exam Mental Status Exam Patient Appearance: Well Grooomed and Appropriate Patient Orientation: Person, Place, Time and Situation Level of Consciousness: Awake and Appropriate Patient Behavior: Appropriate, Talkative and Good Eye Contact Mood Description: Anxious and Sad Affect Description: Anxious and Sad Patient Cognition Impaired: No Ability to Follow Directions: Good Speech Pattern: Clear and Appropriate Memory Description: Intact Hallucinations: None Delusions: Not Present Thought Process: Intact and Goal Oriented Thought Content: positive for Intact and positive for Goal Oriented Judgement: Good Assessment and Plan Assessment & Plan (1) Major depressive disorder, recurrent, mild: Status: Acute Code(s): F33.0 - Major depressive disorder, recurrent, mild (2) Generalized anxiety disorder with panic attacks: Status: Acute Code(s): F41.1 - Generalized anxiety disorder; F41.0 - Panic disorder [episodic paroxysmal anxiety] Plan increase prozac to 20mg daily lorazepam 0.5mg BID prn anxiety/panic Medications: New Prozac (fluoxetine) 20 mg PO DAILY 90 caps 1RF NS Changed From lorazepam 0.5 mg PO BEDTIME 30 days PRN 30 tabs 0RF anxiety To lorazepam 0.5 mg PO BID PRN 60 tabs 2RF anxiety 30 days Discontinued escitalopram oxalate Discontinued Reason: Patient no longer taking 10 mg PO DAILY 7 days 7 tabs 0RF fluoxetine Discontinued Reason: Patient no longer taking 10 mg PO DAILY 30 days 30 tabs 6RF Counseling and coordination of Care Pt. Self Management counseling: Exercise, Maintenance-social rhythm, Mod caffeine/ETOH intake, Nutrition education and improvement, Sleep hygiene, Behavior activation, General coping skills and Problem solving Medication management counseling: Effectiveness, Side effects, Dosing range, Duration, Drug interaction and Adherence Diagnosis and Prognosis Counseling: Accuracy of diagnosis, Prognosis over time, Impact of diagnosis on life functions, Impact of family relationship, Problematic behaviors secondary to diagnosis and Adequacy of current interventions Details: I spent 75 minutes reviewing the record, seeing the patient and documenting in the medical record. Counseling provided to the patient/caregiver as outlined below. Addressed patient/caregiver concerns regarding current medication regime including effective adherence. Addressed patient/caregiver concerns regarding diagnosis and prognosis including accuracy of diagnosis, prognosis over time, impact of diagnosis. Addressed patient/caregiver concerns regarding impact of recent stressors. [facility] Medical History (Updated 01/26/24 @ 11:43 by Michelle Cardona APRN) Mild major depression GERD (gastroesophageal reflux disease) Left sided sciatica Dyslipidemia Hypovitaminosis D Anxiety Vertigo Essential hypertension Surgical History History of colonoscopy History of surgery History of lymph node biopsy History of section H/O LEEP Family History Father CHF (congestive heart failure) TIA (transient ischemic attack) Pacemaker Mother Breast cancer AAA (abdominal aortic aneurysm) Stroke Brother Esophageal cancer Sister Hypertension Maternal Uncle AAA (abdominal aortic aneurysm) Social History (Updated 11/02/23 @ 17:34 by Christina Queen MD) Housing: House Alcohol intake: current Alcohol intake frequency: 0-2 drinks per day Alcohol type: wine Patient Tobacco Use Status: Never used Tobacco e-Cigarette/Vaping Use: Never Used Second Hand Smoke Exposure: No service: No Current occupational status: employed Current occupational exposures/hazards: No Cognitive needs: No Hearing needs: No Vision needs: Yes Social History: x 2 and has 4 adult daughters ; lives with H. 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 She is one of 8 children - very close family. 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
== END 2024-01-08 15:58 | disposition home or self-care (01) ==
LOC: HO.HOP 15:01
PROVIDERS: PCP Internal Medicine; Visit Provider Clinical Nurse Specialist Psychiatric/Mental Health
DX: F33.0 Major depressive disorder, recurrent, mild (principal); F41.1 Generalized anxiety disorder; F41.0 Panic disorder [episodic paroxysmal anxiety]
CPT/HCPCS: 90792

== ENCOUNTER → 2024-01-08 15:01 | Outpatient (BNVA) | payer OTHER, SELFPAY | PROVIDERS: PCP Internal Medicine; Visit Provider Clinical Nurse Specialist Psychiatric/Mental Health | DX: F33.0 Major depressive disorder, recurrent, mild (principal); F41.1 Generalized anxiety disorder; F41.0 Panic disorder [episodic paroxysmal anxiety]; Z79.899 Other long term (current) drug therapy | CPT/HCPCS: 90792 ==

== ENCOUNTER 2024-03-08 16:30 | Outpatient (AMB) | payer OTHER, SELFPAY ==
--- NOTE | 2024-03-08 16:33 | A.OFFPC_ITS ---
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 Required: No Accompanied by: Self / Same As Patient Allergies No Known Allergies Allergy (Unknown, Verified 03/08/24 16:45) Medication List - Last Reconciled 03/08/24 by Christina Queen MD aspirin (Adult Low Dose Aspirin) 81 mg PO DAILY atorvastatin 20 mg PO BEDTIME 90 days cholecalciferol (vitamin D3) 25 mcg PO DAILY 90 days lisinopril 20 mg PO DAILY 90 days lorazepam 0.5 mg PO BID PRN 30 days omeprazole 40 mg PO DAILY 90 days Prozac (fluoxetine) 20 mg PO DAILY NS Tobacco use date assessed: 03/08/24 Dental Screening Dental Screen Date: 03/08/24 Did you have a dental visit in the last 12 months?: No Did you have a dental problem in the last 6 months where you did not have access to dental care?: No Was dental information given to patient?: Patient has dentist HPI HPI Comments History of Present Illness Details The patient is a 59-year-old female presenting for a wellness visit with management of chronic conditions and anxiety. She has a history of essential hypertension managed on Lisinopril 20 mg, which is controlled well. The patient is also dealing with generalized anxiety, for which she is undergoing regular counseling sessions every other Thursday with Annel, a therapist at [facility]. She reports the need for continuous management due to elevated anxiety following family losses and adjustments in her family dynamics, including her daughter's recent decision to home . The patient started fluoxetine (currently taking 20 mg) after a discussion with her prescriber, Michelle aWrner, and notes a history of dosage adjustment. She has elevated liver enzymes, last checked at levels of 61/58, with ongoing alcohol consumption reported as a few times a week, primarily wine, which she has been attempting to reduce. Gastroesophageal reflux disease is managed with omeprazole. Hyperlipidemia is being treated with atorvastatin, which may also contribute to the liver enzyme elevation. Patient denies any new symptoms. She plans to continue monitoring with regular blood work and physical examinations. She has not Hodgkin lymphoma in remission. [facility] Medical History Mild major depression GERD (gastroesophageal reflux disease) Left sided sciatica Dyslipidemia Hypovitaminosis D Anxiety Vertigo Essential hypertension Surgical History History of colonoscopy History of surgery History of lymph node biopsy History of section H/O LEEP Family History Father CHF (congestive heart failure) TIA (transient ischemic attack) Pacemaker Mother Breast cancer AAA (abdominal aortic aneurysm) Stroke Brother Esophageal cancer Sister Hypertension Maternal Uncle AAA (abdominal aortic aneurysm) Social History (Updated 03/08/24 @ 16:50 by Christina Queen MD) Housing: House Alcohol intake: current Alcohol intake frequency: a few times a week Alcohol type: wine Patient Tobacco Use Status: Former Tobacco user e-Cigarette/Vaping Use: Never Used Second Hand Smoke Exposure: No service: No Current occupational status: employed Current occupational exposures/hazards: No Cognitive needs: No Hearing needs: No Vision needs: Yes Questionnaire PHQ-9 Over the last 2 weeks, how often have you been bothered by any of the following problems? 1. Little interest or pleasure in doing things: not at all 2. Feeling down, depressed, or hopeless: several days 3. Trouble falling or staying asleep, or sleeping too much: not at all 4. Feeling tired or having little energy: not at all 5. Poor appetite or overeating: not at all 6. Feeling bad about yourself - or that you are a failure or have let yourself or your family down: not at all 7. Trouble concentrating on things, such as reading the newspaper or watching television: not at all 8. Moving or speaking so slowly that other people could have noticed. Or the opposite - being so fidgety or restless that you have been moving around a lot more than usual: not at all 9. Thoughts that you would be better off or of hurting yourself in some way: not at all Total score: 1 Depression Screening Interpretation: Positive Depression Screening Follow-up: Existing condition, In treatment and Follow-up Visit Requested Depression Screening Done: Yes 78281 - PHQ-9 Billing: Yes Source: Developed by Drs. Hernan Jones, Michelle Ambrose, Julio Euceda and colleagues, with an educational fish from [employer]. Thrive Questionnaire Date Thrive assessed: 03/08/24 I am a: Patient What is your living situation today?: I do not have a steady places to live Within the past 12 months, did the food you bought not last and you didn't have the money to get more?: Never true Within the past 12 months, did you worry whether your food would run out before you got money to buy more?: Never true Do you have trouble paying for medicines?: No Do you have trouble getting transportation to medical appointments?: No Do you have trouble paying your heating and electricity bill?: No Do you have trouble taking care of your child, family member or friend?: No Do you have trouble with day-to-day activities such as bathing, preparing meals, shopping, managing finances, etc.?: No Are you currently unemployed and looking for a job?: No Are you interested in more education?: No Please select the resources that you would like help with: None THRIVE Score: 1 AUDIT C Alcohol Use Questionnaire (AUDIT-C) 1. How often do you have a drink containing alcohol?: 2-3 times a week 2. How many drinks containing alcohol do you have on a typical day when you are drinking?: 1 or 2 3. How often do you have six or more drinks on one occasion?: Never Total Score: 3 NAKUL-7 AMB Questionnaire NAKUL-7 Date NAKUL - 7 assessed: 03/08/24 Feeling nervous, anxious, or on edge: 1 = Several days Not being able to stop or control worryin = Not at all Worrying too much about different things: 1 = Several days Trouble relaxin = Not at all Being so restless that it is hard to sit still: 0 = Not at all Becoming easily annoyed or irritable: 0 = Not at all Feeling afraid as if something awful might happen: 0 = Not at all Total NAKUL-7 score (0-4 normal; 5-9 mild; 10-14 moderate; 15-21 severe): 2 Source: Developed by Michelle Butt, Julio Euceda and colleagues, with an educational fish from [employer]. NAKUL-7 Assessment Billing NAKUL-7 Assessment Tool: NAKUL-7 Assessment 69920 Review of Systems Const All systems reviewed & are unremarkable except as noted in HPI and below Card Denies chest pain at rest, Denies chest pain with activity, Denies edema, Denies irregular heart rhythm, Denies claudication, Denies dyspnea, Denies dyspnea on exertion, Denies orthopnea, Denies paroxysmal nocturnal dyspnea and Denies slow heart rate Resp Denies cough, Denies dyspnea and Denies dyspnea on exertion Physical exam (Primary Care) Vital Signs: Last Vital Signs BP 136/78 03/08/24 16:35 BMI result Body Mass Index 25.0 Tobacco/Smoking Status: Tobacco use Status Tobacco use date assessed 03/08/24 03/08/24 16:40 Patient Tobacco Use Status Former Tobacco user 03/08/24 16:50 e-Cigarette/Vaping Use Never Used 03/08/24 16:50 PHQ-9: PHQ-9 Score PHQ-9: Total score 1 03/08/24 16:45 Depression Screening Interpretation: Positive Depression Screening Follow-up: Existing condition, In treatment and Follow-up Visit Requested Thrive Assessment: Date of Thrive Assessment Date Thrive assessed 03/08/24 03/08/24 16:40 Resp Effort & Inspection: normal respiratory effort Auscultation: clear to auscultation bilaterally Cardio Jugular venous distension: no JVD Rate: regular rate Rhythm: regular rhythm Heart sounds: S1 normal heart sound present and S2 normal heart sound present Extrem General: Yes full ROM Coding Level of Care Code Est Pt Level 4 (58193) Complex EM visit Add On G2211 Diagnoses Major depressive disorder, recurrent, mild F33.0 Generalized anxiety disorder with panic attacks F41.1; F41.0 Non-Hodgkin lymphoma in remission C85.90 Essential hypertension I10 Dyslipidemia E78.5 GERD (gastroesophageal reflux disease) K21.9 Additional Codes NAKUL-7 Assessment Billing - NAKUL-7 Assessment Tool: NAKUL-7 Assessment 84634 ([id number]) PHQ-9 - 77875 - PHQ-9 Billing: Yes ([id number]) Time Spent (min) 23 Assessment & Plan Assessment & Plan (1) Major depressive disorder, recurrent, mild: Code(s): F33.0 - Major depressive disorder, recurrent, mild Category: Medical (2) Generalized anxiety disorder with panic attacks: Code(s): F41.1 - Generalized anxiety disorder; F41.0 - Panic disorder [episodic paroxysmal anxiety] Category: Medical (3) Non-Hodgkin lymphoma in remission: Code(s): C85.90 - Non-Hodgkin lymphoma, unspecified, unspecified site Category: Medical (4) Essential hypertension: Code(s): I10 - Essential (primary) hypertension Category: Medical (5) Dyslipidemia: Code(s): E78.5 - Hyperlipidemia, unspecified Category: Medical (6) GERD (gastroesophageal reflux disease): Code(s): K21.9 - Gastro-esophageal reflux disease without esophagitis Category: Medical Plan - Continue lisinopril 20 mg for hypertension with regular monitoring. - Maintain fluoxetine 20 mg for anxiety; ongoing counseling sessions advised. - Repeat liver function tests and full fasting blood work prior to the scheduled physical in April. - Reinforce reduction of alcohol intake to prevent further liver impairment. - Monitor compliance and efficacy of atorvastatin for hyperlipidemia, considering potential impact on liver enzymes. - Follow-up mammogram and ultrasound scheduled for July 07 to assess healing status of hematoma. - Continue omeprazole for GERD and monitor symptom control. Patient was informed and verbally consented to the use of an ambient scribe for clinic note documentation during this visit. I discussed with the patient the importance of managing chronic conditions and the necessity of frequent monitoring due to elevated liver enzymes and ongoing medication use. We reviewed the interaction between anxiety, family dynamics, and the need for continuous mental health support, including fluoxetine and counseling. We deliberated about the influence of atorvastatin and alcohol on liver function, guiding her towards moderation in alcohol consumption. I emphas ized the relevance of her upcoming mammogram and the precedent of physiological changes associated with her conditions. We confirmed a plan to repeat blood work and prepare for her physical assessment, coordinated with her daughter's due date. Orders: Orders Lipid Panel Today E78.5 - Hyperlipidemia, unspecified Vitamin D 25-OH Total Today E55.9 - Vitamin D deficiency, unspecified Comprehensive [place]. Panel Fast Today E87.5 - Hyperkalemia Patient Instructions: - Continue Lisinopril and Omeprazole as prescribed. - Attend counseling sessions regularly. - Limit alcohol intake to minimize liver impact. - Schedule and attend fasting blood work a week before May 16 appointment. - Monitor for any new symptoms and report if present. - Prepare for follow-up mammogram and ultrasound on July 07. - Contact the clinic if daughter's due date creates scheduling conflicts for physical appointment. - Maintain scheduled follow-ups and comply with prescribed therapies.
[2024-03-08 16:35] VITALS: BP 136/78; BMI 25.0
--- OUTSIDE RECORDS SUMMARY | 2024-03-08 18:12 | XMS_ITS | Continuity of Care Document ---
Author Organization [place] - [facility], [facility] Address [address] [place] [address] Care Team Providers Care Music Manager Name Role Phone CHRISTINA JIMENEZ Primary Care Provider Assessment Encounter Date Assessment Date Assessment LastModified by Organization Details LastModified Time 01/14/2024 01/14/2024 Patient continues to have signs of chronic underlying migraine disorder with vestibular migraine and recurrent BPPV. I gave her more literature to help her fine-tune her migraine diet, particularly within the constraints of her other dietary restrictions. I have encouraged her to continue with working on the underlying anxiety phenomenon as this can be a significant trigger for her symptoms as well. She will continue doing Анна maneuvers at home and with vestibular therapists. Once again we discussed whether or not we should consider pharmacologic therapy in the form of low-dose nortriptyline, but she wants to avoid this for now. She would like to follow-up again in 6 months for reevaluation. [email or web address] Not available 01/14/2024 14:11:14 Plan of Treatment Reminders Order Date Submit Date Provider Last Modified By Organization Details Last Modified Time Details Appointments Dizzy Follow Up 20 2024 03:10P M GUILLAUME TOSCANO MD Not available Not available Not available Lab None recorded . Referral None recorded . Procedures None recorded . Surgeries None recorded . Imaging None recorded . Medication Orders None recorded . Patient TargetsNo targets recorded. Patient InstructionsNo instructions recorded. Reason for Referral None Reported. Problems Name Problem SNOMED Code Status Onset Date Resolution Date Notes Provider Name and Address Organization Details Recorded Time Migraine 68993705 Active 2015 Other migraine, not intractabl e, without status migrainosu s; Note: Date Diagnosed: 12/25/2015 2:40 PM (G43.809) Not Available [facility] 4 02:40:06 Benign paroxysma l positiona l vertigo 912819430 Active 2022 Benign paroxysmal vertigo, unspecifie d ear; Condition: recurrent Note: Date Diagnosed: 12/25/2015 3:21 PM (H81.10) ; Start Date : 12/25/2015 Benign paroxysmal vertigo, left ear; Condition: recurrent Note: Date Diagnosed: 09/23/2017 3:33 PM (H81.12) Not Available [facility] 4 02:40:04 Allergic rhinitis 93344171 Active 2020 Other allergic rhinitis; Note: Date Diagnosed: 05/21/2020 4:36 PM (J30.89) Not Available [facility] 4 02:40:03 Vertigo of central origin NOS Active 2015 Vertigo of central origin, unspecifie d ear; Condition: recurrent Note: Date Diagnosed: 12/25/2015 3:21 PM (H81.49) Not Available [facility] 4 02:40:01 Generaliz ed anxiety disorder 63043001 Active 2023 GUILLAUME TOSCANO MD [address] [place] [address], [place], [address] , [place] - [facility] 4 13:59:18 Vertigo of central origin 59633933 Active 2023 GUILLAUME TOSCANO MD [address] [place] [address], [place], [address] , [place] - [facility] 4 14:08:02 Problem Notes None recorded. Procedures Surgical History Date Name Laterality Status Provider Name and Address Organization Details Recorded Time ligation of fallopian tube completed Christina Rubin [place] - [facility] 01/14/2024 13:46:55 section completed Christina Rubin [place] [facility] 01/14/2024 13:47:02 Imaging Results None recorded. Procedure Notes None recorded. Medical Equipment None Reported. Allergies No known drug allergies Medications Name Sig Start Date Stop Date Status Note LastModified by Organization Details LastModified Time atorvasta tin 20 mg tablet 20 MG ORALLY BEDTIME FOR 90 DAYS active Not Available Not Available No t Available desoximet asone 0.25 % topical cream APPLY TO ARM AND LEG RASH TWICE A DAY NEEDED NOT TO EXCEED 2 WEEKS AT A TIME active Not Available Not Available No t Available Claritin 10 mg tablet Take 1 tablet by mouth once a day 05/21 completed Medicati on ID: [id number] D uration Value: 30 Brand Name: Claritin Send Method: E-Prescr ibed Sub s Allowed: subs OK Medic ationGen ericName : Claritin Not Available Not Available Not Available lisinopri l 20 mg tablet TAKE 1 TABLET (20 MG) ORALLY DAILY FOR 90 DAYS active Not Available Not Available No t Available fluoxetin e 10 mg tablet TAKE 1 TABLET BY MOUTH EVERY DAY 01/13 completed Not Available Not Available Not Available Children' s Aspirin 81 mg chewable tablet 2020 active Medicati on ID: [id number] B rand Name: Children 's Aspirin Send Method: E-Prescr ibed Sub s Allowed: subs OK Medic ationGen ericName : Children 's Aspirin Not Available Not Available Not Available omeprazol e 40 mg capsule,d elayed release TAKE 1 CAPSULE BY MOUTH EVERY DAY active Not Available Not Available No t Available lorazepam 0.5 mg tablet TAKE 1 TABLET BY MOUTH EVERY DAY BEDTIME NEEDED FOR ANXIETY FOR 30 DAYS active Not Available Not Available No t Available hydrochlo rothiazid e 12.5 mg capsule 09/23 completed Medicati on ID: [id number] D uration Value: 30 Brand Name: hydrochl orothiaz patric Send Method: E-Prescr ibed Sub s Allowed: subs OK Speci al Instruct ion: TK ONE C PO QD Medic ationGen ericName : hydrochl orothiaz patric Not Available Not Available Not Available lisinopri l 5 mg tablet 06/30 completed Medicati on ID: [id number] D uration Value: 90 Brand Name: lisinopr il Send Method: E-Prescr ibed Sub s Allowed: subs OK Speci al Instruct ion: TK 1 T PO QD Medic ationGen ericName : lisinopr il Not Available Not Available Not Available fluoxetin e 20 mg capsule active Not Available Not Available Not Available escitalop jayden 10 mg tablet TAKE 1 TABLET BY MOUTH EVERY DAY FOR 7 DAYS 01/13 completed Not Available Not Available Not Available escitalop jayden 20 mg tablet TAKE 1 TABLET BY MOUTH EVERYDAY AT BEDTIME 01/13 completed Not Available Not Available Not Available Vitamin D3 25 mcg (1,000 unit) capsule TAKE 1 CAPSULE BY MOUTH EVERY DAY active Not Available Not Available No t Available cholecalc iferol (vitamin D3) 50 mcg (2,000 unit) capsule 2015 active Medicati on ID: [id number] D uration Value: 30 Brand Name: cholecal ciferol (vitamin D3) Send Method: E-Prescr ibed Sub s Allowed: subs OK Speci al Instruct ion: TK ONE C PO QD Medic ationGen ericName : cholecal ciferol (vitamin D3) Not Available Not Available Not Available cyanocoba mina (vitamin B-12) 1,000 mcg capsule active Medicati on ID: [id number] B rand Name: cyanocob alamin (vitamin B-12) Se nd Method: E-Prescr ibed Sub s Allowed: subs OK Medic ationGen ericName : cyanocob alamin (vitamin B-12) Not Available Not Available Not Available Vitals None Recorded Social History None recorded. Functional Status None recorded. Mental Status None recorded. Family History Nothing Reported. Medical History Condition Response Anxiety Y GERD/Reflux Y High Cholesterol Y Cancer Y Migraines Y Hypertension Y Depression Y Gynecological HistoryNo gynecological history recorded. Obstetrics History GPAL:G 0 P 0 0 0 0 Past Encounters Encounter ID Performer Location Encounter Start Date Encounter Closed Date Diagnosis/Indication Diagnosis SNOMED-CT Code Diagnosis ICD10 Code Diagnosis Note [id number] GUILLAUME TOSCANO MD [facility] [address] [address] 01/14/2024 13:37:09 01/14/2024 14:10:25 Benign paroxysmal positional vertigo 791474844 H81.10 H81.12 Migraine 28034716 G43.80 9 Generalize d anxiety disorder 58089448 F41.1 Vertigo of central origin 43628898 H81.4 Health Concerns Section Related Observation LastModified by Organization Detai ls LastModified Time None Recorded Concern Status LastModified by Organization Details LastModified Time None Recorded Payers Encounter Date Sequence Insurance Name Policy Number Policy Quick Covered Member ID Quick Member ID Guarantor Name 01/14/2024 1 [facility] ([facility] [place] [id number] 1 Mariola العراقي Cachorro [id number] Mariola Ivory Notes Date Note Type Note Provider Name and Address Organization Details Recorded Time 01/14/2024 text/html 58-year-old leonides jaimes with history of migraine and BPPV who I last saw back in January. We discussed the connection between migraine and recurrent BPPV at length during that visit and gave her significant amount of literature regarding identification and elimination of migraine triggers. Patient has loosely followed a migraine diet including minimizing caffeine, reducing alcohol, and eliminating certain food types like citrus. She in general notices that she is less foggy . She is still getting recurrent BPPV, but they seem to be less intense and less frequent. She has to do Анна maneuvers at home about 8-9 times per month. At her last visit we discussed potentially initiating pharmacologic therapy in the form of low-dose nortriptyline to but she did not want to initiate that at the time. Patient has recently began addressing her chronic underlying anxiety disorder with counseling and changes in her anxiety medication regimen. She has been under a lot of stress lately dealing with a sick family member that requires flying. GUILLAUME TOSCANO MD [address] [place] [address], [place], [address], [facility] - [facility] 01/14/2024 14:11:35 OBGyn Episode No OBEpisode recorded.
--- OUTSIDE RECORDS SUMMARY | 2024-03-08 18:12 | XMS_ITS | Data Portability ---
Author Organization [place] - [facility], Allergy Address [address] [address] Care Team Providers Care Metal Temperer Name Role Phone CHRISTINA JIMENEZ Primary Care [...] follow-up again in 6 months for reevaluation. [email or web address] Not available 01/14/2024 14:11:14 Plan of Treatment [...] and Address Organization Details Recorded Time Migraine 82899912 Active 2015 Other migraine, not intractabl e, without status migrainosu s; Note: Date Diagnosed: 12/25/2015 2:40 PM (G43.809) Not Available [facility] 4 02:40:06 Benign paroxysma l positiona l vertigo 231899415 Active 2022 Benign paroxysmal vertigo, unspecifie d ear; Condition: recurrent Note: Date Diagnosed: 12/25/2015 3:21 PM (H81.10) ; Start Date : 12/25/2015 Benign paroxysmal vertigo, left ear; Condition: recurrent Note: Date Diagnosed: 09/23/2017 3:33 PM (H81.12) Not Available [facility] 4 02:40:04 Allergic rhinitis 20412203 Active 2020 Other allergic rhinitis; Note: Date Diagnosed: 05/21/2020 4:36 PM (J30.89) Not Available [facility] 4 02:40:03 Vertigo of central origin NOS Active 2015 Vertigo of central origin, unspecifie d ear; Condition: recurrent Note: Date Diagnosed: 12/25/2015 3:21 PM (H81.49) Not Available [facility] 4 02:40:01 Generaliz ed anxiety disorder 45258047 Active 2023 GUILLAUME TOSCANO MD [address] [place] [address], [place], [address] , [place] - [facility] 4 13:59:18 Vertigo of central origin 04062007 Active 2023 GUILLAUME TOSCANO MD [address] [place] [address], [place], [address] , [place] - [facility] 4 14:08:02 Problem Notes None recorded. Procedures Surgical History Date Name Laterality Status Provider Name and Address Organization Details Recorded Time ligation of fallopian tube completed Christina Rubin [place] - [facility] 01/14/2024 13:46:55 section completed Christina Rubin [place] - [facility] 01/14/2024 13:47:02 Imaging Results None recorded. Procedure [...] a day 05/21 completed Medicati on ID: [id number] D uration Value: 30 Brand Name: Claritin [...] chewable tablet 2020 active Medicati on ID: [id number] B rand Name: Children 's Aspirin Send [...] mg capsule 09/23 completed Medicati on ID: [id number] D uration Value: 30 Brand Name: hydrochl orothiaz patric Send Method: E-Prescr ibed Sub s Allowed: subs OK Samuel al Instruct ion: TK ONE C PO QD Medic ationGen ericName : hydrochl orothiaz patric Not Available Not Available Not Available lisinopri l 5 mg tablet 06/30 completed Medicati on ID: [id number] D uration Value: 90 Brand Name: lisinopr [...] unit) capsule 2015 active Medicati on ID: [id number] D uration Value: 30 Brand Name: cholecal ciferol (vitamin D3) Send Method: E-Prescr ibed Sub s Allowed: subs OK Speci al Instruct ion: TK ONE C PO QD Medic ationGen ericName : cholecal ciferol (vitamin D3) Not Available Not Available Not Available cyanocoba mina (vitamin B-12) 1,000 mcg capsule active Medicati on ID: [id number] B rand Name: cyanocob alamin (vitamin B-12) [...] Note [id number] GUILLAUME TOSCANO MD [facility] [address] [address] 01/14/2024 13:37:09 01/14/2024 14:10:25 Benign paroxysmal positional vertigo 886600938 H81.10 H81.12 Migraine 34082640 G43.80 9 Generalize d anxiety disorder 73924071 F41.1 Vertigo of central origin 07596149 H81.4 Health Concerns Section Related Observation LastModified by Organization Detai ls LastModified Time None Recorded Concern Status LastModified by Organization Details LastModified Time None Recorded Advance Directives Directive None Recorded Payers Encounter Date Sequence Insurance Name Policy Number Policy Quick Covered Member ID Quick Member ID Guarantor Name 01/14/2024 1 [facility] [place] [place] [id number] 1 Mariola العراقي Cachorro [id number] Mariola Ivory Notes Date Note Type Note [...] member that requires flying. GUILLAUME TOSCANO MD [address] [place] [address], [phone], [facility] - [facility] 01/14/2024 14:11:35 OBGyn Episode No OBEpisode recorded.
== END 2024-03-08 17:00 | disposition home or self-care (01) ==
PROVIDERS: PCP Internal Medicine; Visit Provider Internal Medicine
DX: F33.0 Major depressive disorder, recurrent, mild (principal); F41.1 Generalized anxiety disorder; F41.0 Panic disorder [episodic paroxysmal anxiety]; C85.90 Non-Hodgkin lymphoma, unspecified, unspecified site; I10 Essential (primary) hypertension; E78.5 Hyperlipidemia, unspecified; K21.9 Gastro-esophageal reflux disease without esophagitis

== ENCOUNTER → 2024-03-08 16:30 | Outpatient (BNVA) | payer OTHER, SELFPAY | PROVIDERS: PCP Internal Medicine; Visit Provider Internal Medicine | DX: F33.0 Major depressive disorder, recurrent, mild (principal); F41.1 Generalized anxiety disorder; F41.0 Panic disorder [episodic paroxysmal anxiety]; C85.90 Non-Hodgkin lymphoma, unspecified, unspecified site; I10 Essential (primary) hypertension; E78.5 Hyperlipidemia, unspecified; K21.9 Gastro-esophageal reflux disease without esophagitis; Z79.899 Other long term (current) drug therapy | CPT/HCPCS: 96127 ==

== ENCOUNTER 2024-05-16 17:27 | Outpatient (AMB) | payer OTHER, SELFPAY ==
--- NOTE | 2024-05-16 17:28 | A.OFFPC_ITS ---
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 Required: No Accompanied by: Self / Same As Patient Allergies No Known Allergies Allergy (Unknown, Verified 05/16/24 17:44) Medication List - Last Reconciled 05/16/24 by Christina Queen MD aspirin (Adult Low Dose Aspirin) 81 mg PO DAILY atorvastatin 20 mg PO BEDTIME 90 days cholecalciferol (vitamin D3) 25 mcg PO DAILY 90 days lisinopril 20 mg PO DAILY 90 days lorazepam 0.5 mg PO BID PRN 30 days omeprazole 40 mg PO DAILY 90 days Prozac (fluoxetine) 20 mg PO DAILY NS Tobacco use date assessed: 03/08/24 Dental Screening Dental Screen Date: 03/08/24 HPI HPI Comments History of Present Illness Details The patient is a 59-year-old female presenting for her annual physical examination. Noteworthy in this visit is the elevated blood pressure, likely exacerbated by a hectic weekend. The patient takes lisinopril for hypertension and may adjust administration time to improve control. She also manages hyperlipidemia with atorvastatin and gastroesophageal reflux disease with omeprazole. Wellbutrin assists in managing depression, highlighted by difficulties following the loss of her nephew. The patient's vertigo is addressed with vestibular therapy, limited to 90 days per year under her insurance plan. She has a significant family history of cardiovascular issues, stroke, breast cancer, likely contributing to her overall health management strategy, including ongoing counseling for anxiety. A specific concern today is a newly noticed skin lesion. Described as a red inflamed area, possibly an abscess, it surfaced in the last 24 hours, prompting closer examination and consideration for treatment. - Mammogram completed last summer. - Colonoscopy completed in 2015; next re commended in 2025. - Tetanus vaccination completed in 2021, next due in 2031. - Counseling and therapy initiated for a nxiety and depression. - Intentional moderation of alcohol inta ke following treatment intervention. - Resumed vestibular therapy for vertigo management. [facility] Medical History (Updated 05/16/24 @ 20:48 by Christina Queen MD) Mild major depression GERD (gastroesophageal reflux disease) Left sided sciatica Dyslipidemia Hypovitaminosis D Anxiety Vertigo Essential hypertension Surgical History History of colonoscopy History of surgery History of lymph node biopsy History of section H/O LEEP Family History Father CHF (congestive heart failure) TIA (transient ischemic attack) Pacemaker Mother Breast cancer AAA (abdominal aortic aneurysm) Stroke Brother Esophageal cancer Sister Hypertension Maternal Uncle AAA (abdominal aortic aneurysm) Social History Housing: House Alcohol intake: current Alcohol intake frequency: a few times a week Alcohol type: wine Patient Tobacco Use Status: Former Tobacco user e-Cigarette/Vaping Use: Never Used Second Hand Smoke Exposure: No service: No Current occupational status: employed Current occupational exposures/hazards: No Cognitive needs: No Hearing needs: No Vision needs: Yes Questionnaire Thrive Questionnaire Date Thrive assessed: 03/08/24 NAKUL-7 AMB Questionnaire NAKUL-7 Date NAKUL - 7 assessed: 03/08/24 Source: Developed by Drs. Hernan Jones, Michelle Ambrose, Julio Euceda and colleagues, with an educational fish from [employer]. Review of Systems Const All systems reviewed & are unremarkable except as noted in HPI and below Card Denies chest pain at rest, Denies chest pain with activity, Denies edema, Denies irregular heart rhythm, Denies claudication, Denies dyspnea, Denies dyspnea on exertion, Denies orthopnea, Denies paroxysmal nocturnal dyspnea and Denies slow heart rate Resp Denies cough, Denies dyspnea and Denies dyspnea on exertion GI Denies abdominal pain, Denies change in bowel habits, Denies excessive flatus, Denies nausea and Denies vomiting Denies urinary incontinence, Denies urinary hesitancy and Denies urinary urgency Musc Denies atrophy, Denies deformity and Denies limited range of motion Skin/Breast Denies bleeding lesions, Denies changing lesions and Denies rash Physical exam (Primary Care) Vital Signs: Last Vital Signs BP 140/86 H 05/16/24 17:29 BMI result Body Mass Index 25.0 Tobacco/Smoking Status: Tobacco use Status Tobacco use date assessed 03/08/24 05/16/24 17:33 Patient Tobacco Use Status Former Tobacco user 05/16/24 17:33 e-Cigarette/Vaping Use Never Used 05/16/24 17:33 Thrive Assessment: Date of Thrive Assessment Date Thrive assessed 03/08/24 05/16/24 17:[address] [facility] Head: Yes normal to inspection, Yes normocephalic and Yes atraumatic Ears: external ears normal Eyes General: appearance normal, both eyes and all related structures Eyelids: Yes eyelids normal Conjunctivae: conjunctivae normal Neck Neck: Yes normal visual inspection and Yes supple Resp Effort & Inspection: normal respiratory effort Auscultation: clear to auscultation bilaterally Cardio Jugular venous distension: no JVD Rate: regular rate Rhythm: regular rhythm Heart sounds: S1 normal heart sound present and S2 normal heart sound present GI Inspection: Yes normal to inspection Palpation (GI): Soft to palpation and nontender Auscultation: normal bowel sounds Skin General skin exam: no rashes or lesions noted Neuro General: no focal motor deficits Extrem General: Yes full ROM Psych Appearance: grossly normal Coding Level of Care Code Est Pt Level 3 (22523) Est Pt Prev Care 40-64y(54571) Diagnoses Adult general medical exam Z00.00 Non-Hodgkin lymphoma in remission C85.90 Major depressive disorder, recurrent, mild F33.0 Skin infection L08.9 Time Spent (min) 35 Assessment & Plan Assessment & Plan (1) Adult general medical exam: Code(s): Z00.00 - Encounter for general adult medical examination without abnormal findings Category: Medical (2) Non-Hodgkin lymphoma in remission: Code(s): C85.90 - Non-Hodgkin lymphoma, unspecified, unspecified site Category: Medical (3) Major depressive disorder, recurrent, mild: Code(s): F33.0 - Major depressive disorder, recurrent, mild Category: Medical (4) Skin infection: Code(s): L08.9 - Local infection of the skin and subcutaneous tissue, unspecified Category: Medical Plan I advised the patient to continue current medications and lifestyle adjustments to manage hypertension, hyperlipidemia, GERD, and depression effectively. Blood pressure should be monitored at home, and lisinopril will switch to morning administration to optimize control. The inflamed skin lesion will be treated with topical antibiotics, with oral treatment optional if symptoms progress. The management efforts must cater to the chronicity and severity of each condition, applying strategies learned through counseling, to encourage equilibrium in her overall physical and mental health. Patient was informed and verbally consented to the use of an ambient scribe for clinic note documentation during this visit. During this visit, we discussed the likely diagnosis of a bacterial skin abscess, opting for conservative management with topical antibiotics and monitoring, with oral medication available if necessary. The patient consents to these recommendations. Support groups and therapy were notable interventions in reducing alcohol intake, with further mental health support confirmed via her counselor. We agreed on a blood pressure monitoring plan, implementing lisinopril alterations, recognizing the potential benefits versus risks of morning administration. Continuation of vestibular therapy remains in alignment with available insurance provisions, necessary for her vertigo. Return visits via telehealth were suggested to reduce inconvenience, prioritizing patient comfort while enabling effective follow-up monitoring. Orders: Orders Vitamin D 25-OH Total Today E55.9 - Vitamin D deficiency, unspecified Vitamin B12 and Folate Today E53.8 - Deficiency of other specified B group vitamins Lipid Panel Today E78.5 - Hyperlipidemia, unspecified Comprehensive [place]. Panel Fast Today I10 - Essential (primary) hypertension Medications: New doxycycline hyclate 100 mg PO BID 14 caps 0RF 7 days Patient Instructions: - Monitor blood pressure at home and record readings. - Administer lisinopril in the morning starting tomorrow. - Apply triple antibiotic ointment to the inflamed skin area; seek assistance if necessary for application. - Avoid covering the area unless advised. - Contact the office if the skin lesion does not improve in 2-3 days for possible oral antibiotics. - Continue counseling appointments and vestibular therapy as scheduled. - Maintain moderate alcohol consumption. - Schedule telehealth visit for blood pressure review in three weeks.
[2024-05-16 17:29] VITALS: BP 140/86; BMI 25.0
== END 2024-05-16 18:04 | disposition home or self-care (01) ==
LOC: HO.HMCH 17:27
PROVIDERS: PCP Internal Medicine; Visit Provider Internal Medicine
DX: Z00.00 Encounter for general adult medical examination without abnormal findings (principal); C85.90 Non-Hodgkin lymphoma, unspecified, unspecified site; F33.0 Major depressive disorder, recurrent, mild; L08.9 Local infection of the skin and subcutaneous tissue, unspecified

== ENCOUNTER → 2024-05-16 17:27 | Outpatient (BNVA) | payer OTHER, SELFPAY | PROVIDERS: PCP Internal Medicine; Visit Provider Internal Medicine ==

== ENCOUNTER 2024-07-04 15:01 | Outpatient (RCR) | payer OTHER, SELFPAY ==
[2024-05-11 10:58] VITALS: BP 121/73; PULSE 85
== END 2024-08-15 13:43 | disposition home or self-care (01) ==
LOC: HO.PT 15:01
PROVIDERS: PCP Internal Medicine; Visit Provider Otolaryngology
DX: H81.10 Benign paroxysmal vertigo, unspecified ear (principal)
CPT/HCPCS: 95992; 97112; 97161

== ENCOUNTER 2024-08-08 09:20 | Outpatient (REF) | payer OTHER, SELFPAY ==
--- NOTE | ~2024-08-08 | US_ITS ---
EXAMINATION: MM DIAGNOSTIC DIGITAL BREAST TOMOSYNTHESIS, BILATERAL 1 year follow-up for hyperechoic left breast area, patient had a history of left breast, previously. CLINICAL INFORMATION: Left breast Limited ultrasound. COMPARISON: Mammography: Comparison is made with relevant prior exams. TECHNIQUE: Digital breast mammography with tomosynthesis is performed in both the craniocaudal and mediolateral oblique views along with computer-aided detection (CAD). FINDINGS: There are scattered areas of fibroglandular density (ACR BI-RADS breast composition Category b). There are no significant masses, abnormal calcifications, or other abnormalities. Targeted color Doppler ultrasound scanning in the left breast from 8-10 o'clock at 9:00 4 cm from the nipple demonstrates hyperechoic area which was previously seen to be more vague and ill-defined measuring approximately 12 x 3 x 8 mm which is decreased in size from prior 2 ultrasounds and therefore benign. This area could represent a normal patch of hyperechoic tissue. Results are provided to the patient at time of visit by the technologist. US/US breast LT limited mamm only IMPRESSION: Left: Hypoechoic area at 9:00 4 cm from the nipple is decreased in size and more ill-defined and vague compared to prior's and therefore benign. Right: Negative. ASSESSMENT: BI-RADS BI-RADS 2 - Benign Findings RECOMMENDATION: 1 year F/U This patient's information was entered into a reminder system with a target due date for their next mammogram. Electronically signed by: Delma Roberson DO 08/08/2024 12:02 PM EDT
--- OUTSIDE RECORDS SUMMARY | 2024-08-08 10:06 | XMS_ITS | Data Portability ---
Author Organization [place] - [facility], Allergy Address [address] [address] Care Team Providers Care Certified Medical Dosimetrist Name Role Phone CHRISTINA JIMENEZ Primary Care [...] follow-up again in 6 months for reevaluation. [email or web address] Not available 01/14/2024 14:11:14 Plan of Treatment [...] and Address Organization Details Recorded Time Migraine 02839904 Active 2015 Other migraine, not intractabl e, without status migrainosu s; Note: Date Diagnosed: 12/25/2015 2:40 PM (G43.809) Not Available [facility] 4 02:40:06 Benign paroxysma l positiona l vertigo 176360844 Active 2022 Benign paroxysmal vertigo, unspecifie d ear; Condition: recurrent Note: Date Diagnosed: 12/25/2015 3:21 PM (H81.10) ; Start Date : 12/25/2015 Benign paroxysmal vertigo, left ear; Condition: recurrent Note: Date Diagnosed: 09/23/2017 3:33 PM (H81.12) Not Available [facility] 4 02:40:04 Allergic rhinitis 99801395 Active 2020 Other allergic rhinitis; Note: Date Diagnosed: 05/21/2020 4:36 PM (J30.89) Not Available [facility] 4 02:40:03 Vertigo of central origin NOS Active 2015 Vertigo of central origin, unspecifie d ear; Condition: recurrent Note: Date Diagnosed: 12/25/2015 3:21 PM (H81.49) Not Available [facility] 4 02:40:01 Generaliz ed anxiety disorder 40559658 Active 2023 GUILLAUME TOSCANO MD [address] [place] [address], [place], [address] , [place] - [facility] 4 13:59:18 Vertigo of central origin 07208916 Active 2023 GUILLAUME TOSCANO MD [address] [place] [address], [place], [address] , [place] - [facility] 4 14:08:02 Problem Notes None recorded. Procedures Surgical History Date Name Laterality Status Provider Name and Address Organization Details Recorded Time ligation of fallopian tube completed Christina Rubin [place] - [facility] 01/14/2024 13:46:55 section completed Christina Rubin [place] - [facility] 01/14/2024 13:47:02 Imaging Results None recorded. Procedure [...] a day 05/21 completed Medicati on ID: [id number] D uration Value: 30 Brand Name: Claritin Send Method: E-Prescr ibed Sub s Allowed: subs OK Medic ationGen ericName : Claritin Not Available Not Available Not Available naltrexon e 50 mg tablet TAKE 1 TABLET BY MOUTH EVERY DAY active Not Available Not Available No t Available lisinopri l 20 mg tablet TAKE 1 TABLET BY MOUTH EVERY DAY active Not Available Not Available No t Available fluoxetin e 10 mg tablet TAKE 1 TABLET BY MOUTH EVERY DAY 01/13 completed Not Available Not Available Not Available Children' s Aspirin 81 mg chewable tablet 2020 active Medicati on ID: [id number] B rand Name: Children 's Aspirin Send Method: E-Prescr ibed Sub s Allowed: subs OK Medic ationGen ericName : Children 's Aspirin Not Available Not Available Not Available omeprazol e 40 mg capsule,d elayed release TAKE 1 CAPSULE BY MOUTH EVERY DAY active Not Available Not Available No t Available lorazepam 0.5 mg tablet TAKE 1 TABLET BY MOUTH 2 TIMES A DAY NEEDED FOR ANXIETY FOR 30 DAYS active Not Available Not Available No t Available hydrochlo rothiazid e 12.5 mg capsule 09/23 completed Medicati on ID: [id number] D uration Value: 30 Brand Name: hydrochl orothiaz patric Send Method: E-Prescr ibed Sub s Allowed: subs OK Speci al Instruct ion: TK ONE C PO QD Medic ationGen ericName : hydrochl orothiaz patric Not Available Not Available Not Available lisinopri l 5 mg tablet 06/30 completed Medicati on ID: [id number] D uration Value: 90 Brand Name: lisinopr il Send Method: E-Prescr ibed Sub s Allowed: subs OK Speci al Instruct ion: TK 1 T PO QD Medic ationGen ericName : lisinopr il Not Available Not Available Not Available fluoxetin e 20 mg capsule TAKE 1 CAPSULE BY MOUTH EVERY DAY active Not Available Not Available No t Available escitalop jayden 10 mg tablet TAKE [...] unit) capsule 2015 active Medicati on ID: [id number] D uration Value: 30 Brand Name: cholecal ciferol (vitamin D3) Send Method: E-Prescr ibed Sub s Allowed: subs OK Speci al Instruct ion: TK ONE C PO QD Medic ationGen ericName : cholecal ciferol (vitamin D3) Not Available Not Available Not Available cyanocoba mina (vitamin B-12) 1,000 mcg capsule active Medicati on ID: [id number] B rand Name: cyanocob alamin (vitamin B-12) Se nd Method: E-Prescr ibed Sub s Allowed: subs OK Medic ationGen ericName : cyanocob alamin (vitamin B-12) Not Available Not Available Not Available Vitals None Recorded Social History None recorded. Functional Status None recorded. Mental Status None recorded. Family History Nothing Reported. Medical History Condition Response Anxiety Y High Cholesterol Y GERD/Reflux Y Cancer Y Migraines Y Hypertension Y Depression Y Gynecological HistoryNo gynecological history recorded. Obstetrics History GPAL:G 0 P 0 0 0 0 Past Encounters Encounter ID Performer Location Encounter Start Date Encounter Closed Date Diagnosis/Indication Diagnosis SNOMED-CT Code Diagnosis ICD10 Code Diagnosis Note [id number] GUILLAUME TOSCANO MD [facility] 100 [facility] [place] [address] 01/14/2024 13:37:09 01/14/2024 14:10:25 Benign paroxysmal positional vertigo 961167510 H81.10 H81.12 Migraine 08849489 G43.80 9 Generalize d anxiety disorder 20748962 F41.1 Vertigo of central origin 85119275 H81.4 Health Concerns Section Related Observation LastModified by Organization Detai ls LastModified Time None Recorded Concern Status LastModified by Organization Details LastModified Time None Recorded Advance Directives Directive None Recorded Payers Insurance Date Sequence Insurance Name Policy Number Policy Quick Covered Member ID Quick Member ID Guarantor Name 07/09/2024 1 [facility] ([facility] [id number] 1 Mariola Ivory [id number] Mariola العراقي Cachorro Notes Date Note Type Note Provider Name and Address Organization Details Recorded Time 01/14/2024 text/html 58-year-old fema theodore with history of migraine and BPPV who [...] member that requires flying. GUILLAUME TOSCANO MD [address] [place] [address], [phone], [facility] - [facility] 01/14/2024 14:11:35 OBGyn Episode No OBEpisode recorded.
== END 2024-08-08 09:21 | disposition home or self-care (01) ==
LOC: HO.MAMMO 09:20
PROVIDERS: PCP Internal Medicine; Referring Provider Obstetrics & Gynecology; Visit Provider Internal Medicine
DX: N63.25 Unspecified lump in the left breast, overlapping quadrants (principal)
CPT/HCPCS: 76642; 77062; 77066

== ENCOUNTER → 2024-08-08 10:00 | Outpatient (BNV) | payer OTHER, SELFPAY | PROVIDERS: PCP Internal Medicine; Referring Provider Obstetrics & Gynecology; Visit Provider Internal Medicine | DX: N64.89 Other specified disorders of breast (principal) | CPT/HCPCS: 76642; 77062; 77066 ==

== ENCOUNTER 2024-09-19 16:25 | Outpatient (AMB) | payer OTHER, SELFPAY ==
--- OUTSIDE RECORDS SUMMARY | 2024-09-19 16:28 | XMS_ITS | Patient Health Record ---
Author Organization [facility] Address [address] [place] [address] Care Team Providers Care Life Insurance Agent Name Role Phone Miryam KIRKLAND, Lucia Primary Care Provider U asavenkat Hernan Monroe Unavailable [phone] Reason For Referral No Information Medications Medication SIG (Take, Route, Fr equency, Duration) Notes Start Date End Date Status LORazepam .5mg Activ e Simvastatin 20mg Act alee PROzac 20mg Active Problems Problem Type SNOMED Code ICD Code Onset Dates Problem Status W/U Status Risk Notes Problem Colon cancer screening (692756610) Colon cancer screening (V76.51) Active confirmed Problem Gastroesophageal reflux disease (782351093) GERD (gastroesopha geal reflux disease) (530.81) Active confirmed Plan Of Treatment No Information Insurance Providers Payer Name Payer Address Payer Phone Subscriber Number Group Number Insured Name Patient Relationship to Insured Coverage Start Date Coverage End Date [facility] [address] [facility] [id number] [id number] RAQUEL NIYA Self - patient is the insured Medical (General) History Medical History History ICD Code GERD-EGD in 12/2010 was normal Denies [place],DM,CVA,Lung disease,renal dise ase Hyperlipidemia Depression Non-Hodgkin's Lymphoma in the Surgical History Surgery Date(Month/Year) Non-Hodgkins lymphoma with a portion of her left lung removed around 1986 BTL
--- OUTSIDE RECORDS SUMMARY | 2024-09-19 16:28 | XMS_ITS | Data Portability ---
Author Organization [place] - [facility], Allergy Address [address] [address] Care Team Providers Care Captain Room Service Name Role Phone CHRISTINA JIMENEZ Primary Care Provider [phone] Assessment Encounter Date Assessment Date Assessment LastModified [...] follow-up again in 6 months for reevaluation. [email or web address] Not available 01/14/2024 14:11:14 Plan of Treatment Reminders Order Date Submit Date Provider Last Modified By Organization Details Last Modified Time Details Appointments Dizzy Follow Up 20 2024 03:10P Jaret TOSCANO MD Not available Not available Not [...] and Address Organization Details Recorded Time Migraine 80616544 Active 2015 Other migraine, not intractabl e, without status migrainosu s; Note: Date Diagnosed: 12/25/2015 2:40 PM (G43.809) Not Available Counts include 234 beds at the [facility] 4 02:40:06 Vertigo of central origin NOS Active 2015 Vertigo of central origin, unspecifie d ear; Condition: recurrent Note: Date Diagnosed: 12/25/2015 3:21 PM (H81.49) Not Available Counts include 234 beds at the [facility] 4 02:40:01 Allergic rhinitis 64199476 Active 2020 Other allergic rhinitis; Note: Date Diagnosed: 05/21/2020 4:36 PM (J30.89) Not Available Counts include 234 beds at the [facility] 4 02:40:03 Benign paroxysma l positiona l vertigo 111072983 Active 2022 Benign paroxysmal vertigo, unspecifie d ear; Condition: recurrent Note: Date Diagnosed: 12/25/2015 3:21 PM (H81.10) ; Start Date : 12/25/2015 Benign paroxysmal vertigo, left ear; Condition: recurrent Note: Date Diagnosed: 09/23/2017 3:33 PM (H81.12) Not Available Counts include 234 beds at the [facility] 4 02:40:04 Generaliz ed anxiety disorder 32784783 Active 2023 GUILLAUME TOSCANO MD [address] [place] [address], [place], [address] , [place] - [facility] 4 13:59:18 Vertigo of central origin 57161840 Active 2023 GUILLAUME TOSCANO MD [address] [place] [address], [place], [address] , [place] - [facility] 4 14:08:02 Problem Notes None recorded. Procedures Surgical History Date Name Laterality Status Provider Name and Address Organization Details Recorded Time ligation of fallopian tube completed Christina Rubin MA - [facility] 01/14/2024 13:46:55 section completed Christina Rubin MA [facility] 01/14/2024 13:47:02 Imaging Results None recorded. Procedure Notes None recorded. Medical Equipment None Reported. Allergies No known drug allergies Medications Name Sig Start Date Stop Date Status Note LastModified by Organization Details LastModified Time atorvasta tin 20 mg tablet 20 MG ORALLY BEDTIME FOR 90 DAYS active Not Available Not Available No t Available desoximet asone 0.25 % topical cream APPLY A THIN LAYER TWICE A DAY TO ARM, LEG RASH X 2 WEEKS active Not Available Not Available No t Available Claritin 10 mg tablet Take 1 tablet by mouth once a day 05/21 completed Medicati on ID: [id number] D uration Value: 30 Brand Name: Claritin [...] chewable tablet 2020 active Medicati on ID: [id number] B rand Name: Children 's Aspirin Send [...] mg capsule 09/23 completed Medicati on ID: [id number] D uration Value: 30 Brand Name: hydrochl orothiaz patric Send Method: E-Prescr ibed Sub s Allowed: subs OK Speci al Instruct ion: TK ONE C PO QD Medic ationGen ericName : hydrochl orothiaz patric Not Available Not Available Not Available lisinopri l 5 mg tablet 06/30 completed Medicati on ID: [id number] D uration Value: 90 Brand Name: lisinopr [...] unit) capsule 2015 active Medicati on ID: [id number] D uration Value: 30 Brand Name: cholecal ciferol (vitamin D3) Send Method: E-Prescr ibed Sub s Allowed: subs OK Speci al Instruct ion: TK ONE C PO QD Medic ationGen ericName : cholecal ciferol (vitamin D3) Not Available Not Available Not Available cyanocoba mina (vitamin B-12) 1,000 mcg capsule active Medicati on ID: [id number] B rand Name: cyanocob alamin (vitamin B-12) [...] Note [id number] GUILLAUME TOSCANO MD [facility] 100 [place] [address] 01/14/2024 13:37:09 01/14/2024 14:10:25 Benign paroxysmal positional vertigo 902858749 H81.10 H81.12 Migraine 10825719 G43.80 9 Generalize d anxiety disorder 26305343 F41.1 Vertigo of central origin 57227490 H81.4 Health Concerns Section Related Observation LastModified by Organization Detai ls LastModified Time None Recorded Concern Status LastModified by Organization Details LastModified Time None Recorded Advance Directives Directive None Recorded Payers Insurance Date Sequence Insurance Name Policy Number Policy Quick Covered Member ID Quick Member ID Guarantor Name 09/19/2024 1 [facility] [id number] Mariola Ivory [id number] Mariola Ivory OBGyn Episode No OBEpisode recorded.
[2024-09-19 16:31] VITALS: BP 122/80; BMI 26.0
--- NOTE | 2024-09-19 16:31 | MHC.PC.OV ---
Vital Signs 09/19/24 16:31 Height 5 ft 2 in Weight 142 lb BMI 26.0 BP 122/80 Blood Pressure Location Lt brachial Position Sitting Intake Visit Reasons: DM Health Science Writer Required: No Accompanied by: Self / Same As Patient Allergies No Known Allergies Allergy (Unknown, Verified 09/19/24 16:41) Medication List - Last Reconciled 09/19/24 by Christina Queen MD aspirin (Adult Low Dose Aspirin) 81 mg PO DAILY atorvastatin 20 mg PO BEDTIME 90 days cholecalciferol (vitamin D3) 25 mcg PO DAILY 90 days lisinopril 20 mg PO DAILY 90 days lorazepam 0.5 mg PO BID PRN 30 days omeprazole 40 mg PO DAILY 90 days Prozac (fluoxetine) 20 mg PO DAILY NS Tobacco use date assessed: 09/19/24 Dental Screening Dental Screen Date: 03/08/24 HPI HPI Comments History of Present Illness Details The patient is a 59-year-old female presenting for follow-up of her chronic conditions. She has a history of mild major depressive disorder and anxiety with panic attacks, managed with fluoxetine 20 mg daily and lorazepam as needed. Her hypertension is controlled with lisinopril 20 mg daily, and she is on atorvastatin 20 mg at bedtime for dyslipidemia. The patient reports occasional episodes of vertigo, for which she undergoes vestibular therapy as needed. She is on vitamin D supplementation due to a deficiency and has a history of low vitamin B12, which will be re-evaluated. She experiences symptoms of gastroesophageal reflux disease despite being on omeprazole 40 mg for over 10 years. She has not had a recent endoscopy, and a referral to gastroenterology is planned. Preventative care includes the use of baby aspirin for primary prophylaxis of coronary artery disease. [facility] Medical History Mild major depression GERD (gastroesophageal reflux disease) Left sided sciatica Dyslipidemia Hypovitaminosis D Anxiety Vertigo Essential hypertension Surgical History History of colonoscopy History of surgery History of lymph node biopsy History of section H/O LEEP Family History Father CHF (congestive heart failure) TIA (transient ischemic attack) Pacemaker Mother Breast cancer AAA (abdominal aortic aneurysm) Stroke Brother Esophageal cancer Sister Hypertension Maternal Uncle AAA (abdominal aortic aneurysm) Social History Housing: House Alcohol intake: current Alcohol intake frequency: a few times a week Alcohol type: wine Patient Tobacco Use Status: Former Tobacco user Tobacco use type: Cigarette e-Cigarette/Vaping Use: Never Used Second Hand Smoke Exposure: No service: No Current occupational status: employed Current occupational exposures/hazards: No Cognitive needs: No Hearing needs: No Vision needs: Yes Questionnaire PHQ-9 Over the last 2 weeks, how often have you been bothered by any of the following problems? 1. Little interest or pleasure in doing things: not at all 2. Feeling down, depressed, or hopeless: not at all 3. Trouble falling or staying asleep, or sleeping too much: several days 4. Feeling tired or having little energy: several days 5. Poor appetite or overeating: not at all 6. Feeling bad about yourself - or that you are a failure or have let yourself or your family down: not at all 7. Trouble concentrating on things, such as reading the newspaper or watching television: not at all 8. Moving or speaking so slowly that other people could have noticed. Or the opposite - being so fidgety or restless that you have been moving around a lot more than usual: not at all 9. Thoughts that you would be better off or of hurting yourself in some way: not at all Total score: 2 Depression Screening Interpretation: Negative Depression Screening Done: Yes 27083 - PHQ-9 Billing: Yes Source: Developed by Drs. Hernan Jones, Michelle Ambrose, Julio Euceda and colleagues, with an educational fish from [employer]. Thrive Questionnaire Date Thrive assessed: 09/19/24 I am a: Patient What is your living situation today?: I have a steady place to live Within the past 12 months, did the food you bought not last and you didn't have the money to get more?: Never true Within the past 12 months, did you worry whether your food would run out before you got money to buy more?: Never true Do you have trouble paying for medicines?: No Do you have trouble getting transportation to medical appointments?: No Do you have trouble paying your heating and electricity bill?: No Do you have trouble taking care of your child, family member or friend?: No Do you have trouble with day-to-day activities such as bathing, preparing meals, shopping, managing finances, etc.?: No Are you currently unemployed and looking for a job?: No Are you interested in more education?: No Please select the resources that you would like help with: None Currently or been in a relationship where the following occur: No concerns reported THRIVE Score: 0 AUDIT C Alcohol Use Questionnaire (AUDIT-C) 1. How often do you have a drink containing alcohol?: 4 or more times a week 2. How many drinks containing alcohol do you have on a typical day when you are drinking?: 3 or 4 3. How often do you have six or more drinks on one occasion?: Less than monthly Total Score: 6 NAKUL-7 AMB Questionnaire NAKUL-7 Date NAKUL - 7 assessed: 03/08/24 Source: Developed by Drs. Hernan Jones, Michelle Ambrose, Julio Euceda and colleagues, with an educational fish from [employer]. Review of Systems Const All systems reviewed & are unremarkable except as noted in HPI and below Card Denies chest pain at rest, Denies chest pain with activity, Denies edema, Denies irregular heart rhythm, Denies claudication, Denies dyspnea, Denies dyspnea on exertion, Denies orthopnea, Denies paroxysmal nocturnal dyspnea and Denies slow heart rate Resp Denies cough, Denies dyspnea and Denies dyspnea on exertion GI Denies abdominal pain, Denies change in bowel habits, Denies excessive flatus, Denies nausea and Denies vomiting Denies urinary incontinence, Denies urinary hesitancy and Denies urinary urgency Musc Denies atrophy, Denies deformity and Denies limited range of motion Physical exam (Primary Care) Vital Signs: Last Vital Signs BP 122/80 09/19/24 16:31 BMI result Body Mass Index 26.0 Tobacco/Smoking Status: Tobacco use Status Tobacco use date assessed 09/19/24 09/19/24 16:35 Patient Tobacco Use Status Former Tobacco user 09/19/24 16:35 Tobacco use type Cigarette 09/19/24 16:35 e-Cigarette/Vaping Use Never Used 09/19/24 16:35 PHQ-9: PHQ-9 Score PHQ-9: Total score 2 09/19/24 16:45 Depression Screening Interpretation: Negative Thrive Assessment: Date of Thrive Assessment Date Thrive assessed 09/19/24 09/19/24 16:35 Currently or been in a relationship where the following occur: No concerns reported Resp Effort & Inspection: normal respiratory effort Auscultation: clear to auscultation bilaterally Cardio Jugular venous distension: no JVD Rate: regular rate Rhythm: regular rhythm Heart sounds: S1 normal heart sound present and S2 normal heart sound present Extrem General: Yes full ROM Coding Level of Care Code Est Pt Level 4 (32256) Complex EM visit Add On G2211 Diagnoses Major depressive disorder, recurrent, mild F33.0 Generalized anxiety disorder with panic attacks F41.1; F41.0 Essential hypertension I10 Dyslipidemia E78.5 Hypovitaminosis D E55.9 GERD (gastroesophageal reflux disease) K21.9 Additional Codes PHQ-9 - 74707 - PHQ-9 Billing: Yes ([id number]) Time Spent (min) 23 Assessment & Plan Assessment & Plan (1) Major depressive disorder, recurrent, mild: Code(s): F33.0 - Major depressive disorder, recurrent, mild Category: Medical (2) Generalized anxiety disorder with panic attacks: Code(s): F41.1 - Generalized anxiety disorder; F41.0 - Panic disorder [episodic paroxysmal anxiety] Category: Medical (3) Essential hypertension: Code(s): I10 - Essential (primary) hypertension Category: Medical (4) Dyslipidemia: Code(s): E78.5 - Hyperlipidemia, unspecified Category: Medical (5) Hypovitaminosis D: Code(s): E55.9 - Vitamin D deficiency, unspecified Category: Medical (6) GERD (gastroesophageal reflux disease): Code(s): K21.9 - Gastro-esophageal reflux disease without esophagitis Category: Medical Plan The patient's current medication regimen will remain unchanged at this time. Laboratory tests will be ordered to evaluate cholesterol levels, vitamin D, vitamin , blood glucose, renal function, and liver function. A referral to gastroenterology will be made to address persistent gastroesophageal reflux disease symptoms despite long-term omeprazole use. Orders: Orders Vitamin D 25-OH Total Today E55.9 - Vitamin D deficiency, unspecified Vitamin B12 and Folate Today E53.8 - Deficiency of other specified B group vitamins Comprehensive Gruver. Panel Fast Today I10 - Essential (primary) hypertension Lipid Panel Today E78.5 - Hyperlipidemia, unspecified Referrals Gastroenterology Referral K21.9 - Gastro-esophageal reflux disease without esophagitis
== END 2024-09-19 16:52 | disposition home or self-care (01) ==
LOC: HO.HMCH 16:26
PROVIDERS: PCP Internal Medicine; Visit Provider Internal Medicine
DX: F33.0 Major depressive disorder, recurrent, mild (principal); F41.1 Generalized anxiety disorder; F41.0 Panic disorder [episodic paroxysmal anxiety]; I10 Essential (primary) hypertension; E78.5 Hyperlipidemia, unspecified; E55.9 Vitamin D deficiency, unspecified; K21.9 Gastro-esophageal reflux disease without esophagitis

== ENCOUNTER → 2024-09-19 16:25 | Outpatient (BNVA) | payer OTHER, SELFPAY | PROVIDERS: PCP Internal Medicine; Visit Provider Internal Medicine | DX: E11.9 Type 2 diabetes mellitus without complications (principal); F32.A Depression, unspecified; F41.9 Anxiety disorder, unspecified; F41.0 Panic disorder [episodic paroxysmal anxiety]; I10 Essential (primary) hypertension; R42 Dizziness and giddiness; K21.9 Gastro-esophageal reflux disease without esophagitis; I25.10 Atherosclerotic heart disease of native coronary artery without angina pectoris; Z79.899 Other long term (current) drug therapy | CPT/HCPCS: 96127 ==

== ENCOUNTER 2024-10-06 14:20 | Outpatient (REF) | payer OTHER, SELFPAY ==
--- NOTE | ~2024-10-06 | MM_ITS ---
EXAMINATION: DXA BONE DENSITY AXIAL HISTORY: Z78.0 MENOPAUSAL STATE TECHNIQUE: [employer] Dual energy absorptiometry (DEXA) of the lumbar spine, total left hip, and femoral neck was performed. COMPARISON: Comparison is made with the prior examination dated 01/07/2007. FINDINGS: The bone mineral density of the lumbar spine is 1.149 g/cm2, corresponding to a T-score of -0.3, and a Z-score of 1.1. This is indicative of normal bone mineral density. This represents a BMD change of -3.9% compared to the prior exam. This is statistically significant. The bone mineral density of the left total hip is 0.807 g/cm2, corresponding to a T-score of -1.6, and a Z-score of -0.6. This is indicative of osteopenia. This represents a BMD change of -18.7% compared to the prior exam. This is statistically significant. The bone mineral density of the left femoral neck is 0.781 g/cm2, corresponding to a T-score of -1.8, and a Z-score of -0.5. This is indicative of osteopenia. This represents a BMD change of -19.3% compared to the prior exam. FRACTURE RISK: The FRAX index suggests a ten year probability of major osteoporotic fracture of 11.6%, and of hip fracture 1.7%. MM/XR DEXA axial skeleton IMPRESSION: Based on bone mineral density, and according to World Health Organization (WHO) criteria, the diagnosis is consistent with osteopenia. Statistically, 68% of repeat scans fall within 1 SD (+/- 0.010 g/cm2 for AP spine L1-L4) and 1 SD (+/- 0.012 g/cm2 for femur total) FRAX is a trademark of the [employer] [employer], a World Health Organization (WHO) Collaborating Center. Electronically signed by: Hernan Vasquez MD 10/06/2024 03:06 PM EDT
== END 2024-10-06 14:21 | disposition home or self-care (01) ==
LOC: HO.MAMMO 14:20
PROVIDERS: Visit Provider Obstetrics & Gynecology
DX: Z13.820 Encounter for screening for osteoporosis (principal); Z78.0 Asymptomatic menopausal state
CPT/HCPCS: 77080

== ENCOUNTER → 2024-10-06 14:30 | Outpatient (BNV) | payer OTHER, SELFPAY | PROVIDERS: Visit Provider Radiology Diagnostic Radiology | DX: E28.39 Other primary ovarian failure (principal) | CPT/HCPCS: 77080 ==

== ENCOUNTER 2025-01-04 15:15 | Outpatient (AMB) | payer OTHER, SELFPAY ==
--- NOTE | 2025-01-04 15:31 | MHC.OFFVIS ---
Vital Signs 01/04/25 15:36 Height 5 ft 3 in Weight 142 lb BMI 25.2 BP 118/82 Blood Pressure Location Lt brachial Position Sitting Pulse 78 Pulse Source Pulse Oximeter Pulse Oximetry (%) 95 Oxygen Delivery Method Room Air Intake Visit Reasons: Gastroesophageal reflux disease (GERD) Intake Note: New pt for initial eval of GERD. Due for colonoscopy ~ 2025. CC: C.O. GERD, nausea, and intermittent constipation and diarrhea. Pt reports that she has chronic anxiety and nausea related to chronic vertigo, therefore she is unsure if the nausea is worse for a GI reason, or if it is related to her PMHx. Pt also reports concern for melena but states that she has been taking pepto as well per the PPI not being as effective anymore. Photo Producer Required: No Accompanied by: Self / Same As Patient Allergies No Known Allergies Allergy (Unknown, Verified 09/19/24 16:41) HPI HPI Gastroesophageal reflux disease (GERD): Details: 59-year-old female here for initial evaluation of GERD. She is referred by Christina Huitron. PMX Hypertension High cholesterol History of non-Hodgkin's lymphoma Transaminitis Vertigo GERD Depression with anxiety Lumbar degenerative disc disease with radiculopathy * SURGICAL HISTORY Colonoscopy-2016 normal Fallopian tube surgery Lymph node biopsy section x2 * ALLERGIES: NKDA * [employer] LABS: Needs labs TODAY'S VISIT [facility] Medical History (Updated 01/04/25 @ 15:46 by MIKE Gama) Adult general medical exam Mild major depression GERD (gastroesophageal reflux disease) Left sided sciatica Dyslipidemia Hypovitaminosis D Anxiety Vertigo Essential hypertension Surgical History History of colonoscopy History of surgery History of lymph node biopsy History of section H/O LEEP Family History Father CHF (congestive heart failure) TIA (transient ischemic attack) Pacemaker Mother Breast cancer AAA (abdominal aortic aneurysm) Stroke Brother Esophageal cancer Sister Hypertension Maternal Uncle AAA (abdominal aortic aneurysm) Social History Housing: House Alcohol intake: current Alcohol intake frequency: a few times a week Alcohol type: wine Patient Tobacco Use Status: Former Tobacco user Tobacco use type: Cigarette e-Cigarette/Vaping Use: Never Used Second Hand Smoke Exposure: No service: No Current occupational status: employed Current occupational exposures/hazards: No Cognitive needs: No Hearing needs: No Vision needs: Yes Review of Systems Const Denies fatigue, Denies fever(s), Denies night sweats, Denies poor appetite and Denies weight loss Eyes Details: glasses Reports requires corrective lenses ENT Reports Normal hearing present, Denies dental pain, Denies dysphagia, Denies hearing loss, Denies mouth pain, Denies odynophagia, Denies throat swelling, Denies tongue swelling and Reports other (Dentition adequate) Card Reports no additional complaints Resp Reports no additional complaints GI Details: Denies abdominal pain, Denies melena, Reports bloating, Denies hematochezia, Reports constipation, Denies GI cramping, Denies dysphagia, Denies excessive flatus, Denies early satiety, Reports heartburn, Reports diarrhea, Denies nausea, Denies odynophagia, Denies vomiting and Denies hematemesis Skin/Breast Denies pruritus, Denies lesions, Denies rash and Denies jaundice Neuro Reports Normal hearing present and Denies Abnormal speech present Psych Reports anxiety Endo Denies fatigue Aller/Immun Denies throat swelling and Denies tongue swelling Physical Exam Vital Signs: Last Vital Signs Pulse 78 01/04/25 15:36 BP 118/82 01/04/25 15:36 Pulse Ox 95 01/04/25 15:36 Oxygen Delivery Method Room Air 01/04/25 15:36 BMI result Body Mass Index 25.2 Const General: cooperative, no acute distress, well developed and well groomed Nutritional Appearance: average body habitus and well nourished Orientation/consciousness: oriented to person, oriented to place and oriented to time Limitations: No language barrier HEENT Head: Yes normocephalic and Yes atraumatic Eyes General: appearance normal, both eyes and all related structures Pupils: Equal, round and reactive pupils present Neck Neck: Yes normal visual inspection and Yes no lymphadenopathy Thyroid: Thyroid normal Chest Chest/axillae images:  1. surgical scar Resp Effort & Inspection: normal respiratory effort and able to speak in complete sentences Auscultation: clear to auscultation bilaterally Cardio Rate: regular rate Rhythm: regular rhythm Heart sounds: Normal, physiologic split S2 sound present Peripheral pulses: radial pulses present and posterior tibial pulses present GI Inspection: No distended and No Abdominal panniculus present Palpation (GI): Soft to palpation, nontender, no guarding, not rigid and No hepatosplenomegaly present Percussion: Yes normal to percussion Auscultation: normal bowel sounds Rectal Exam - Female: deferred Abdomen image:  1. surgical scar Skin General skin exam: no rashes or lesions noted, turgor normal, skin not dry, no jaundice, No spider nevi and no striae Rashes: no rashes Nails: normal Neuro General: oriented to person, oriented to place and oriented to time Cranial nerves: Yes Equal, round and reactive pupils present and Yes Normal hearing present Speech: No Abnormal speech present Extrem General: Yes normal to inspection, No clubbing, No cyanosis and No edema Psych Appearance: grossly normal and well kempt Mental Status: mental status grossly normal Speech and movement: Pressured speech present Affect: Anxious affect present Attitude: cooperative Thought process: Normal thought process present and not confabulating Thought content: Normal thought content present Insight: Fair insight present (Psych) Judgement: Fair judgement present (Psych) Assessment & Plan Assessment & Plan (1) GERD (gastroesophageal reflux disease): Code(s): K21.9 - Gastro-esophageal reflux disease without esophagitis Category: Medical (2) Pre-op examination: Code(s): Z01.818 - Encounter for other preprocedural examination Category: Medical Plan She tells me that she has had GERD that used to be intermittent over the past few years. However, since last August it has worsened in his occurring daily. This is in spite of taking omeprazole every day. She can not identify any diet changes, new medications, illness, weight gain, preceding this. She does frequently have a sore throat, but she is uncertain if this is due to postnasal drip order nocturnal GERD. She is also due for a colonoscopy since her last was in 2016. I am not going to get an EGD order just yet as I think there is some other studies we should do 1st. Some labs to see if there is any abnormalities would be prudent, we also need them as a pre-op, an H pylori stool test, a thyroid since her bowels have change in her somewhat more constipated lately, an ultrasound to rule out gallbladder disease and a barium swallow would all be a prudent initial approach. In the meantime we will also change her PPI since her omeprazole is clearly ineffective. She also endorses significant anxiety which has been persistent for her since her diagnosis/surgery/treatment for chronic myelocytic leukemia many years back. This has waxed and waned over the years in response to personal and familial stresses. She denies any cardiac or respiratory problems. There are no prior problems with anesthesia or sedation. There are no infectious disease problems. There is no known family history of colon cancer or polyps. Return office visit in 6 weeks Orders: Orders Complete Blood Count Auto Diff Today K21.9 - Gastro-esophageal reflux disease without esophagitis, Z01.818 - Encounter for other preprocedural examination TSH reflex Free T4 Today K21.9 - Gastro-esophageal reflux disease without esophagitis, Z01.818 - Encounter for other preprocedural examination Comprehensive Met. Panel Today K21.9 - Gastro-esophageal reflux disease without esophagitis, Z01.818 - Encounter for other preprocedural examination H pylori Ag Stool Today K21.9 - Gastro-esophageal reflux disease without esophagitis, Z01.818 - Encounter for other preprocedural examination US abdomen complete Today K21.9 - Gastro-esophageal reflux disease without esophagitis, Z01.818 - Encounter for other preprocedural examination FL barium swallow Today K21.9 - Gastro-esophageal reflux disease without esophagitis Referrals GI Procedure Notification K21.9 - Gastro-esophageal reflux disease without esophagitis, Z01.818 - Encounter for other preprocedural examination Medications: New sodium,potassium,mag sulfates 17.5-3.13-1.6 gram (Suprep Bowel Prep Kit) 480 mL orally; FOR COLONOSCOPY PREP 354 mL 0RF pantoprazole (Protonix) 40 mg PO DAILY 30 tabs 6RF 30 days K21.9 - Gastro-esophageal reflux disease without esophagitis Discontinued omeprazole Discontinued Reason: Doctor's Order 40 mg PO DAILY 90 days 90 caps 3RF Coding Level of Care Code New Pt Level 3 (65084) Diagnoses GERD (gastroesophageal reflux disease) K21.9 Pre-op examination Z01.818
[2025-01-04 15:36] VITALS: BP 118/82; PULSE 78; O2SAT 95; BMI 25.2
--- OUTSIDE RECORDS SUMMARY | 2025-01-04 18:31 | XMS_ITS | Patient Health Record ---
Author Organization [facility] Address [address] [place] [address] Care Team Providers Care Packer Inspector Name Role Phone Miryam KIRKLAND, Lucia Primary Care Provider U asavenkat Hernan Monroe Unavailable [phone] Reason For Referral No Information Medications Medication SIG (Take, Route, Fr equency, Duration) Notes Start Date End Date Status LORazepam .5mg Activ e Simvastatin 20mg Act alee PROzac 20mg Active Problems Problem Type SNOMED Code ICD Code Onset Dates Problem Status W/U Status Risk Notes Problem Colon cancer screening (289050477) Colon cancer screening (V76.51) Active confirmed Problem Gastroesophageal reflux disease (687347323) GERD (gastroesopha geal reflux disease) (530.81) Active confirmed Plan Of Treatment No Information Insurance Providers Payer Name Payer Address Payer Phone Subscriber Number Group Number Insured Name Patient Relationship to Insured Coverage Start Date Coverage End Date [facility] [address] [facility] [phone] [id number] RAQUEL NIYA Self - patient is the insured Medical (General) History Medical History History ICD Code GERD-EGD in 12/2010 was normal Denies UT,DM,CVA,Lung disease,renal dise ase Hyperlipidemia Depression Non-Hodgkin's Lymphoma in the Surgical History Surgery Date(Month/Year) Non-Hodgkins lymphoma with a portion of her left lung removed around 1986 BTL
--- OUTSIDE RECORDS SUMMARY | 2025-01-04 18:31 | XMS_ITS | Data Portability ---
Author Organization [place] - [facility], Allergy Address [address] [address] Care Team Providers Care Motor Setter Name Role Phone CHRISTINA JIMENEZ Primary Care Provider [phone] Assessment Encounter Date Assessment Date Assessment LastModified [...] follow-up again in 6 months for reevaluation. [email or web address] Not available 01/14/2024 14:11:14 09/27/2024 09/27/2024 Patient continues to have signs of chronic underlying migraine disorder with vestibular migraine and recurrent BPPV. I gave her more literature to help her fine-tune her migraine diet, particularly within the constraints of her other dietary restrictions. I have encouraged her to continue with working on the underlying anxiety phenomenon as this can be a significant trigger for her symptoms as well. We talked about methods of stress reduction and anxiety reduction including meditation or working with a psychologist. She will continue doing Анна maneuvers at home and with vestibular therapists. Once again we discussed whether or not we should consider pharmacologic therapy in the form of low-dose nortriptyline, but she wants to avoid this for now. She would like to follow-up again in 6 months for reevaluation. Not available 09/27/2024 15:17:06 Plan of Treatment Reminders Order Date Submit Date Provider Last Modified By Organization Details Last Modified Time Details Appointments Establish ed 10 2025 03:30P M GUILLAUME TOSCANO MD Not available Not available Not available Lab None recorded. Referral None recorded. Procedures None recorded. Surgeries None recorded. Imaging None recorded. Medication Orders None recorded. Patient TargetsNo targets recorded. Patient InstructionsNo instructions recorded. Reason for Referral None Reported. Problems Name Problem SNOMED Code Status Onset Date Resolution Date Notes Provider Name and Address Organization Details Recorded Time Migraine 61820987 Active 2015 Other migraine, not intractabl e, without status migrainosu s; Note: Date Diagnosed: 12/25/2015 2:40 PM (G43.809) Not Available [facility] 4 02:40:06 Vertigo of central origin NOS Active 2015 Vertigo of central origin, unspecifie d ear; Condition: recurrent Note: Date Diagnosed: 12/25/2015 3:21 PM (H81.49) Not Available [facility] 4 02:40:01 Allergic rhinitis 30289720 Active 2020 Other allergic rhinitis; Note: Date Diagnosed: 05/21/2020 4:36 PM (J30.89) Not Available [facility] 4 02:40:03 Benign paroxysma l positiona l vertigo 656461055 Active 2022 Benign paroxysmal vertigo, unspecifie d ear; Condition: recurrent Note: Date Diagnosed: 12/25/2015 3:21 PM (H81.10) ; Start Date : 12/25/2015 Benign paroxysmal vertigo, left ear; Condition: recurrent Note: Date Diagnosed: 09/23/2017 3:33 PM (H81.12) Not Available [facility] 4 02:40:04 Generaliz ed anxiety disorder 72835719 Active 2023 GUILLAUME TOSCANO MD [address] [place] [address], [facility] [place], [address] , [facility] - [facility] 4 13:59:18 Vertigo of central origin 02055575 Active 2023 GUILLAUME TOSCANO MD [address] [place] [address], [facility] [place] [place], [address] , [place] - [facility] 14:08:02 Problem Notes None recorded. Procedures Surgical [...] a day 05/21 completed Medicati on ID: [id number] D uration Value: 30 Brand Name: Claritin [...] chewable tablet 2020 active Medicati on ID: [id number] B rand Name: Children 's Aspirin Send [...] mg capsule 09/23 completed Medicati on ID: [id number] D uration Value: 30 Brand Name: hydrochl orothiaz patric Send Method: E-Prescr ibed Sub s Allowed: subs OK Speci al Instruct ion: TK ONE C PO QD Medic ationGen ericName : hydrochl orothiaz patric Not Available Not Available Not Available lisinopri l 5 mg tablet 06/30 completed Medicati on ID: [id number] D uration Value: 90 Brand Name: lisinopr [...] unit) capsule 2015 active Medicati on ID: [id number] D uration Value: 30 Brand Name: cholecal ciferol (vitamin D3) Send Method: E-Prescr ibed Sub s Allowed: subs EVANGELIST Baker al Instruct ion: TK ONE C PO QD Medic ationGen ericName : cholecal ciferol (vitamin D3) Not Available Not Available Not Available cyanocoba mina (vitamin B-12) 1,000 mcg capsule active Medicati on ID: [id number] B rand Name: cyanocob alamin (vitamin B-12) Se nd Method: E-Prescr ibed Sub s Allowed: subs OK Medic ationGen ericName : cyanocob alamin (vitamin B-12) Not Available Not Available Not Available Vitals Date Recorded Body height Body mass index (BMI) Body weight Provider Name and Address Organization Details Last Updated DateTime 09/27/2024 160.02 cm 25.2 kg/m2 04371.12 g Candice Palumbo [place] - [facility] 09/27/2024 14:52:19 Social History None recorded. Functional Status None [...] Diagnosis SNOMED-CT Code Diagnosis ICD10 Code Diagnosis IMO Codes Diagnosis Note [id number] GUILLAUME TOSCANO MD [facility] [address] [address] 01/14/2024 13:37:09 01/14/2024 14:10:25 Benign paroxysmal positional vertigo 561336685 H81.10 H81.12 Migraine 23628026 G43.80 9 Generalize d anxiety disorder 58549005 F41.1 Vertigo of central origin 90106097 H81.4 [id number] GUILLAUME TOSCANO MD [facility] [address] [address] 09/27/2024 14:43:44 09/27/2024 15:17:54 Migraine 28687158 G43.809 Vertigo of central origin 64382193 H81.4 Benign par oxysmal positional vertigo 723081677 H81.10 H81.12 Generalize d anxiety disorder 01236739 F41.1 Health Concerns Section Related Observation LastModified by Organization Detai ls LastModified Time None Recorded Concern Status LastModified by Organization Details LastModified Time None Recorded Advance Directives Directive None Recorded Payers Insurance Date Sequence Insurance Name Policy Number Policy Quick Covered Member ID Quick Member ID Guarantor Name 09/27/[address] [place] [address] ([facility] [id number] 1 Mariola Ivory [id number] Mariola Ivory Notes Date Note Type Note Provider Name and Address Organization Details Recorded Time 01/14/2024 text/html 58-year-old female with history of migraine and BPPV who [...] member that requires flying. GUILLAUME TOSCANO MD [address] [place] [address], [phone], [place] - [facility] 01/14/2024 14:11:35 09/27/2024 text/html 59-year-old female with history of migraine and BPPV who I have seen several times in the past. We have discussed the connection between migraine and recurrent BPPV at length have given her significant amount of literature regarding identification and elimination of migraine triggers. Patient reports that she had flareup of symptoms in August, which she attributes to the heat. She went back for physical therapy and had Анна maneuvers done and things are doing better now. Patient has loosely followed a migraine diet and is keeping a food journal. including minimizing caffeine, reducing alcohol, and eliminating certain food types like citrus. She in general notices that she is less foggy . We have discussed pharmacologic therapy in the form of low-dose nortriptyline to but she did not want to initiate that at the time. Patient has recently began addressing her chronic underlying anxiety disorder with counseling and changes in her anxiety medication regimen. She has been under a lot of stress lately. GUILLAUME TOSCANO MD [address] [place] [address],[address], [address], [facility] - [facility] 09/27/2024 15:17:17 OBGyn Episode No OBEpisode recorded.
== END 2025-01-04 16:17 | disposition home or self-care (01) ==
LOC: HO.HGI 15:16
PROVIDERS: PCP Internal Medicine; Visit Provider Nurse Practitioner
DX: Z01.818 Encounter for other preprocedural examination (principal); Z12.11 Encounter for screening for malignant neoplasm of colon; K21.9 Gastro-esophageal reflux disease without esophagitis
CPT/HCPCS: 99203